=== PATIENT | male | born 1975 | race Two or more races ===

== ENCOUNTER 2021-02-07 22:13 | Emergency (ER) | payer BC, OTHER ==
[~2021-02-07] VITALS: Ht 177.8 cm; Wt 83.9 kg
[2021-02-07 23:47] VITALS: BP 114/74
== END 2021-02-08 00:34 | disposition home or self-care (01) ==
LOC: ER 22:13
DX: S00.83XA Contusion of other part of head, initial encounter (principal); E11.9 Type 2 diabetes mellitus without complications; V43.52XA Car driver injured in collision with other type car in traffic accident, initial encounter; Y93.89 Activity, other specified; Y92.488 Other paved roadways as the place of occurrence of the external cause; Y99.8 Other external cause status
CPT/HCPCS: 70450; 72125; 72128; 72131

== ENCOUNTER 2022-01-24 10:30 | Inpatient (IN) | payer BC ==
[~2022-01-24] VITALS: Ht 180.3 cm; Wt 66.4 kg
[2022-01-24] VITALS (10 sets, daily range): BP systolic 134–164; BP diastolic 78–97
[2022-01-24] MEDS ORDERED: INSULIN LANTUS (GLARGINE) 1 /0.01ml (100units/ml) SC ONE (12:00)
[2022-01-24] MEDS ORDERED: SODIUM CHLORIDE 0.9% 1,000 ML IV ONE (12:00)
[2022-01-24] MEDS ORDERED: InsuLIN R (HUMAN) 100 UNITS in SODIUM CHL 0.9% 99 ML IV SCH (12:00)
[2022-01-24] MEDS ORDERED: DEXTROSE (50%) 50ML SYRG IV PRN ×2 (12:00→14:45)
[2022-01-24] MEDS: ACCU-CHEK COMFORT CURVE STRIP VI SCH ×6 (12:42→23:42)
[2022-01-24 12:59] LABS: Basophils # (auto) 0 10 ^3/uL (0-0.2); Basophils % (auto) 0.2 % (0.0-2.0); Eosinophils # (auto) 0 10 ^3/uL (0-0.8); Eosinophils % (auto) 0.1 % (0.0-7.0); Lymphocytes # (auto) 0.9 10 ^3/uL (0.4-5.4); Lymphocytes % (auto) 4.7 % (10.0-50.0); Mean Corpuscular Hemoglobin 30.5 pg (28.0-32.0); Mean Corpuscular Volume 89.7 fL (80.0-100.0); Monocytes # (auto) 1.1 10 ^3/uL (0-1.3); Monocytes % (auto) 5.6 % (0.0-12.0); Neutrophils # (auto) 17.7 10 ^3/uL (1.6-8.6); Neutrophils % (auto) 89.4 % (37.0-80.0); White Blood Cell 19.8 10^3/uL (4.4-10.8)
[2022-01-24 13:11] LABS: Calcium 9.3 mg/dL (8.5-10.1); Potassium 3.8 mmol/L (3.5-5.1)
[2022-01-24 13:17] LABS: Albumin 2.4 g/dL (3.4-5.0); BUN/Creatinine Ratio 26.6; Bilirubin, Total 0.4 mg/dL (0.2-1.0); Magnesium 2.7 mg/dL (1.6-2.6)
[2022-01-24] MEDS ORDERED: NITROGLYCERIN 0.4 MG SL TAB SL PRN (14:45)
[2022-01-24] MEDS ORDERED: HYDROcodone-ACET 5/325MG TAB PO PRN (14:45)
[2022-01-24] MEDS ORDERED: ACETAMINOPHEN 325 MG TAB PO PRN (14:45)
[2022-01-24] MEDS ORDERED: MORPHINE SULFATE 4 MG/ML SYR/VIAL IV PRN (14:45)
[2022-01-24] MEDS: SODIUM CHLORIDE 0.9% 1,000 ML IV SCH ×2 (14:52→23:35)
[2022-01-24 16:57] LABS: BUN/Creatinine Ratio 27.1; Calcium 8.6 mg/dL (8.5-10.1); Potassium 3.2 mmol/L (3.5-5.1)
[2022-01-24] MEDS ORDERED: POTASSIUM CHL 20 Meq TABLET PO ONE (17:30)
[2022-01-24] MEDS: InsuLIN REG 1unit/0.01ml Soln (100units/ml) SC SCH ×2 (18:13→23:39)
[2022-01-24 21:48] LABS: BUN/Creatinine Ratio 22.4; Calcium 8.6 mg/dL (8.5-10.1); Potassium 3.6 mmol/L (3.5-5.1)
[2022-01-25] VITALS (12 sets, daily range): BP systolic 123–167; BP diastolic 74–92
[2022-01-25 04:21] LABS: Potassium 3.8 mmol/L (3.5-5.1)
[2022-01-25 04:26] LABS: Albumin 2.1 g/dL (3.4-5.0); BUN/Creatinine Ratio 23.6; Calcium 8.5 mg/dL (8.5-10.1)
[2022-01-25 04:28] LABS: Bilirubin, Total 0.3 mg/dL (0.2-1.0); Total Protein 6.5 g/dL (6.4-8.2)
[2022-01-25 04:34] LABS: Basophils # (auto) 0 10 ^3/uL (0-0.2); Basophils % (auto) 0.3 % (0.0-2.0); Eosinophils # (auto) 0 10 ^3/uL (0-0.8); Eosinophils % (auto) 0.3 % (0.0-7.0); Hematocrit 40.6 % (41.0-53.0); Hemoglobin 14.3 g/dL (13.5-17.5); Lymphocytes # (auto) 0.8 10 ^3/uL (0.4-5.4); Lymphocytes % (auto) 5.6 % (10.0-50.0); Mean Corpuscular Hemoglobin 30.9 pg (28.0-32.0); Mean Corpuscular Hgb Conc. 35.2 g/dL (32.0-36.0); Mean Corpuscular Volume 87.7 fL (80.0-100.0); Monocytes # (auto) 0.3 10 ^3/uL (0-1.3); Neutrophils # (auto) 12.9 10 ^3/uL (1.6-8.6); Neutrophils % (auto) 91.8 % (37.0-80.0); Nucleated Red Blood Cells % 0.1 %; Red Blood Cells 4.63 10^6/uL (4.5-5.90); Red Cell Distribution Width 12.1 % (11.8-14.3)
[2022-01-25] MEDS: InsuLIN REG 1unit/0.01ml Soln (100units/ml) SC SCH ×4 (06:13→23:48)
[2022-01-25] MEDS: ACCU-CHEK COMFORT CURVE STRIP VI SCH ×4 (06:15→23:40)
[2022-01-25] MEDS: IBUPROFEN 600 MG TAB PO PRN ×3 (06:54→21:55)
[2022-01-25] MEDS: SODIUM CHLORIDE 0.9% 1,000 ML IV SCH ×3 (07:54→19:50)
[2022-01-25 09:27] LABS: BUN/Creatinine Ratio 23.3; Calcium 8.2 mg/dL (8.5-10.1); Potassium 3.4 mmol/L (3.5-5.1)
[2022-01-25] MEDS ORDERED: INSULIN LANTUS (GLARGINE) 1 /0.01ml (100units/ml) SC SCH (10:00)
[2022-01-25] MEDS: INSULIN LANTUS (GLARGINE) 1 /0.01ml (100units/ml) SC SCH ×2 (11:41→21:50)
[2022-01-25] MEDS: ENOXAPARIN SOD 40 MG/0.4 ML SYRINGE SC SCH (11:42)
[2022-01-25] MEDS ORDERED: CEFTRIAXONE SODIUM 2 GM in D5W 5% 50 ML IV ONE (12:30)
[2022-01-25] MEDS ORDERED: POTASSIUM CHL 20 Meq TABLET PO ONE ×2 (12:45→18:00)
[2022-01-25 15:51] LABS: Calcium 7.9 mg/dL (8.5-10.1); Potassium 3.2 mmol/L (3.5-5.1)
[2022-01-25 15:53] LABS: BUN/Creatinine Ratio 28.6
[2022-01-25 17:37] LABS: Urine Bacteria NONE SEEN /hpf (None Seen); Urine Blood Negative /uL (Negative); Urine Budding Yeast OCCASIONAL /hpf (None Seen); Urine Mucus FEW (None Seen); Urine Specific Gravity 1.024 (1.001-1.035); Urine WBC 2 /hpf (0 - 3)
[2022-01-25 17:50] LABS: Alcohol, Urine < 3.0 mg/dL (0-10); Amphetamine Screen, Urine NEGATIVE (NEGATIVE); Barbiturate Scree,Urine NEGATIVE (NEGATIVE); Benzodiazephine Screen, Urine NEGATIVE (NEGATIVE); Cannabinoid Screen, Urine NEGATIVE (NEGATIVE); Cocaine Screen, Urine NEGATIVE (NEGATIVE); Opiate Scree,Urine NEGATIVE (NEGATIVE); Phencyclidine Screen, Urine NEGATIVE (NEGATIVE)
[2022-01-25] MEDS ORDERED: GLIP10TA9 PO (18:31)
[2022-01-25 21:56] LABS: BUN/Creatinine Ratio 32.6; Calcium 8.1 mg/dL (8.5-10.1); Potassium 3.7 mmol/L (3.5-5.1)
[2022-01-26] MEDS: SODIUM CHLORIDE 0.9% 1,000 ML IV SCH ×3 (04:02→18:49)
[2022-01-26 04:41] VITALS: BP 133/84
[2022-01-26] MEDS: ACCU-CHEK COMFORT CURVE STRIP VI SCH ×4 (05:26→23:54)
[2022-01-26] MEDS: InsuLIN REG 1unit/0.01ml Soln (100units/ml) SC SCH ×4 (05:27→23:55)
[2022-01-26 06:06] LABS: Albumin 1.6 g/dL (3.4-5.0); Calcium 7.3 mg/dL (8.5-10.1); Potassium 3.1 mmol/L (3.5-5.1)
[2022-01-26 06:07] LABS: Basophils # (auto) 0.1 10 ^3/uL (0-0.2); Basophils % (auto) 0.5 % (0.0-2.0); Eosinophils # (auto) 0.1 10 ^3/uL (0-0.8); Eosinophils % (auto) 0.9 % (0.0-7.0); Hematocrit 39.7 % (41.0-53.0); Hemoglobin 14.1 g/dL (13.5-17.5); Lymphocytes # (auto) 1.4 10 ^3/uL (0.4-5.4); Lymphocytes % (auto) 9.3 % (10.0-50.0); Mean Corpuscular Hemoglobin 30.9 pg (28.0-32.0); Mean Corpuscular Hgb Conc. 35.5 g/dL (32.0-36.0); Monocytes # (auto) 1.1 10 ^3/uL (0-1.3); Monocytes % (auto) 7.4 % (0.0-12.0); Neutrophils # (auto) 12.6 10 ^3/uL (1.6-8.6); Neutrophils % (auto) 81.9 % (37.0-80.0); Nucleated Red Blood Cells % 0.2 %; Red Blood Cells 4.56 10^6/uL (4.5-5.90); White Blood Cell 15.3 10^3/uL (4.4-10.8)
[2022-01-26 06:10] LABS: BUN/Creatinine Ratio 27.3; Bilirubin, Total 0.3 mg/dL (0.2-1.0); Total Protein 5.5 g/dL (6.4-8.2)
[2022-01-26] MEDS: IBUPROFEN 600 MG TAB PO PRN ×3 (08:18→23:41)
[2022-01-26 09:00] VITALS: BP 143/84
[2022-01-26] MEDS ORDERED: ZOLPIDEM TARTRATE 5 MG TAB PO PRN (09:45)
[2022-01-26] MEDS ORDERED: POTASSIUM CHL 20 Meq TABLET PO ONE (09:45)
[2022-01-26] MEDS: cefTRIAXone 1GM/50ML D5W 50 ML IV SCH (11:15)
[2022-01-26] MEDS: ENOXAPARIN SOD 40 MG/0.4 ML SYRINGE SC SCH (11:15)
[2022-01-26] MEDS: INSULIN LANTUS (GLARGINE) 1 /0.01ml (100units/ml) SC SCH ×2 (12:02→21:27)
[2022-01-26 13:00] VITALS: BP 139/83
[2022-01-26 17:00] VITALS: BP 139/76
[2022-01-26] MEDS: POTASSIUM CHL 20 Meq TABLET PO SCH ×2 (17:29→21:26)
[2022-01-26 22:00] VITALS: BP 133/86
[2022-01-26] MEDS ORDERED: VANCOMYCIN PER PHARMACY 0 MG IV SCH (22:45)
[2022-01-26] MEDS ORDERED: VANCOMYCIN 1GM/250ML 250 ML IV ONE (23:00)
[2022-01-27 04:18] LABS: Basophils # (auto) 0 10 ^3/uL (0-0.2); Basophils % (auto) 0.2 % (0.0-2.0); Eosinophils # (auto) 0.1 10 ^3/uL (0-0.8); Eosinophils % (auto) 0.5 % (0.0-7.0); Hematocrit 41.1 % (41.0-53.0); Hemoglobin 13.9 g/dL (13.5-17.5); Lymphocytes # (auto) 1.8 10 ^3/uL (0.4-5.4); Lymphocytes % (auto) 11.9 % (10.0-50.0); Mean Corpuscular Hemoglobin 29.8 pg (28.0-32.0); Mean Corpuscular Hgb Conc. 33.9 g/dL (32.0-36.0); Mean Corpuscular Volume 87.9 fL (80.0-100.0); Monocytes # (auto) 1.3 10 ^3/uL (0-1.3); Monocytes % (auto) 8.5 % (0.0-12.0); Neutrophils # (auto) 11.7 10 ^3/uL (1.6-8.6); Neutrophils % (auto) 78.9 % (37.0-80.0); Nucleated Red Blood Cells % 0.1 %; Red Blood Cells 4.67 10^6/uL (4.5-5.90); White Blood Cell 14.8 10^3/uL (4.4-10.8)
[2022-01-27 04:31] LABS: Albumin 1.9 g/dL (3.4-5.0); Calcium 8.6 mg/dL (8.5-10.1); Potassium 3.9 mmol/L (3.5-5.1)
[2022-01-27 04:35] LABS: BUN/Creatinine Ratio 13.7; Bilirubin, Total 0.4 mg/dL (0.2-1.0); Total Protein 6.6 g/dL (6.4-8.2)
[2022-01-27 05:00] VITALS: BP 124/78
[2022-01-27] MEDS: InsuLIN REG 1unit/0.01ml Soln (100units/ml) SC SCH ×2 (06:00→12:51)
[2022-01-27] MEDS: ACCU-CHEK COMFORT CURVE STRIP VI SCH ×2 (06:21→12:00)
[2022-01-27] MEDS: IBUPROFEN 600 MG TAB PO PRN ×2 (06:50→15:36)
[2022-01-27 09:00] VITALS: BP 127/81
[2022-01-27] MEDS: cefTRIAXone 1GM/50ML D5W 50 ML IV SCH (09:00)
[2022-01-27] MEDS: POTASSIUM CHL 20 Meq TABLET PO SCH (09:41)
[2022-01-27] MEDS: ENOXAPARIN SOD 40 MG/0.4 ML SYRINGE SC SCH (09:42)
[2022-01-27] MEDS: INSULIN LANTUS (GLARGINE) 1 /0.01ml (100units/ml) SC SCH (09:42)
[2022-01-27] MEDS ORDERED: VANCOMYCIN 1GM/250ML 250 ML IV SCH (10:00)
[2022-01-27] MEDS ORDERED: SITA50TA28 PO (11:24)
[2022-01-27 12:50] LABS: Cholesterol 105 mg/dL (< 200); HDL Cholesterol 25 mg/dL (40-59); LDL Cholesterol 70 mg/dL (< 100); Triglycerides 92 mg/dL (< 150)
[2022-01-27 13:00] VITALS: BP 142/73
[2022-01-27] MEDS: SODIUM CHLORIDE 0.9% 1,000 ML IV SCH (13:00)
[2022-01-27 14:00] VITALS: BP 124/81
[2022-01-27] MEDS ORDERED: IBU600T PO (14:43)
[2022-01-27 16:43] VITALS: BP 136/82
== END 2022-01-27 15:30 | disposition home or self-care (01) | DRG 871 ==
LOC: ER 10:30 → TELE 14:33 → ICU WEST 16:25 → TELE-CENTR 01-25 09:18
PROVIDERS: ADMIT Internal Medicine; ATTEND Family Medicine
DX: A41.9 Sepsis, unspecified organism (principal); E11.10 Type 2 diabetes mellitus with ketoacidosis without coma; E87.1 Hypo-osmolality and hyponatremia; E86.0 Dehydration; M79.621 Pain in right upper arm; Z20.822 Contact with and (suspected) exposure to COVID-19; E86.1 Hypovolemia; Z91.14 Patient's other noncompliance with medication regimen; Z87.891 Personal history of nicotine dependence; Z91.19 Patient's noncompliance with other medical treatment and regimen; Z83.3 Family history of diabetes mellitus
CPT/HCPCS: 36415; 36600; 71046; 73060; 80048; 80053; 80061; 80307; 81001; 82010; 82043; 82306; 82607; 82805; 82962; 83036; 83605; 83735; 84154; 84443; 85025; 87040; 87077; 87081; 87086; 87088; 87147; 87186; 93005; 93971; 96365; 96372; G0378; J0696; J1815; J7060

== ENCOUNTER → 2022-04-14 | Outpatient (CLI) | payer BC ==
[~2022-04-14] MED LIST: GLIP10TA9 PO; IBU600T PO; SITA50TA28 PO
[2022-04-14 15:32] LABS: Albumin 4.3 g/dL (3.4-5.0); Potassium 4.3 mmol/L (3.5-5.1)
[2022-04-14 15:36] LABS: BUN/Creatinine Ratio 19.2; Bilirubin, Total 0.6 mg/dL (0.2-1.0); Total Protein 7.7 g/dL (6.4-8.2)
== END | disposition home or self-care (01) ==
LOC: LAB 14:48
PROVIDERS: ATTEND Internal Medicine
DX: E11.9 Type 2 diabetes mellitus without complications (principal)
CPT/HCPCS: 36415; 80053; 83036

== ENCOUNTER 2025-03-08 16:34 | Inpatient (IN) | payer BC ==
[~2025-03-08] VITALS: Ht 180.3 cm; Wt 70.8 kg
--- NOTE | 2025-03-08 17:19 | ED.PDOC ---
History of present illness HPI Comments 49 y/o M, with PMHx of DM presents to the ED for CC of weakness. Patient states, that he has been experiencing generalized weakness with associated symptoms of poor appetite, frequent urination, and dry mouth xdays. Patient reports, that he was diagnosed with diabetes [id number] ago and has been non-compliant with medications. Patient denies chills, body-aches, or diaphoresis. No others symptoms or modifying factors present at this time. Chief Complaint: Hyperglycemia Time Seen by MD: 17:12 Primary Care Provider: MITCH History of present illness: Nurses Notes, Medications, Allergies Allergies: Coded Allergies: NO KNOWN ALLERGIES (Unverified , 02/07/21) Home Meds Active Scripts Ibuprofen Micronized (MOTRIN TABLET) 600 Mg Tb, 600 MG PO TID PRN for 20 Days, #60 TAB *Black box warning-NSAIDS can increase risk of OR & hypertension, GI irritation, ulceration, bleed, perferation. Prov:MARIA LUISA ZAFAR MD 01/27/22 Sitagliptin-Metformin Hcl (JANUMET XR) 1 Tab Tab, 1 TAB PO BID, #180 TAB Prov:MARIA LUISA ZAFAR MD 01/27/22 Reported Medications Glipizide (Glipizide) 10 Mg Tab, 10 MG PO DAILY, TAB 01/25/22 Information Source: Patient Mode of Arrival: Ambulatory Timing: Months Duration: Since onset Prehospital treatment: None [place]: None Symptoms: Eating poorly History of: None Associated signs and symptoms: None Past Medical History PAST MEDICAL HISTORY: DM Surgical History: Denies all surgeries Family History Family History: Family hx of DM Social History Smoker: Quit Less Than 1 Year Alcohol: Occasionally Drugs: Denies Drug Use Lives In: Home Constitutional: reports: weakness; denies: chills, diaphoresis, fatigue, fever, malaise, sweats, others EENTM: denies: blurred vision, double vision, ear bleeding, ear discharge, ear drainage, ear pain, ear ringing, eye pain, eye redness, hearing loss, mouth pain, mouth swelling, nasal discharge, nose bleeding, nose congestion, nose pain, photophobia, tearing, throat pain, throat swelling, voice changes, others Respiratory: denies: cough, hemoptysis, orthopnea, SOB at rest, shortness of breath, SOB with excertion, stridor, wheezing, others Cardiovascular: denies: chest pain, dizzy spells, diaphoresis, Dyspnea on exertion, edema, irregular heart beat, left arm pain, lightheadedness, palpitations, PND, syncope, others Gastrointestinal: denies: abdomen distended, abdominal pain, blood streaked bowels, constipated, diarrhea, dysphagia, difficulty swallowing, hematemesis, melena, nausea, poor appetite, poor fluid intake, rectal bleeding, rectal pain, vomiting, others Genitourinary: denies: burning, dysuria, flank pain, frequency, hematuria, incontinence, penile discharge, penile sore, pain, testicle pain, testicle swelling, urgency, others Neurological: denies: dizziness, fainting, headache, left sided numbness, left sided weakness, numbness, paresthesia, pre-existing deficit, right sided numbness, right sided weakness, seizure, speech problems, tingling, tremors, weakness, others Musculoskeletal: denies: back pain, gout, joint pain, joint swelling, muscle pain, muscle stiffness, neck pain, others Integumetry: denies: bruises, change in color, change in hair/nails, dryness, laceration, lesions, lumps, rash, wounds, others Allergic/Immunocompromised: denies: Difficulty Healing, Frequent Infections, Hives, Itching, others Hematologic/Lymphatic: denies: anemia, blood clots, easy bleeding, easy bruising, swollen glands, others Endocrine: reports: excessive thirst, excessive urination, others (dry mouth) Psychiatric: denies: anxiety, bipolar disorder, depression, hopeless, panic disorder, schizophrenia, sleepless, suicidal, others All Other Systems: Reviewed and Negative Physical Exam General Appearance: Moderate Distress HEENT: Pale Conjuntivae (L), Pale Conjuntivae (R), Pharynx Normal, TMs Normal Neck: Full Range of Motion, Non-Tender, Normal, Normal Inspection Respiratory: Chest Non-Tender, Lungs Clear, No Accessory Muscle Use, No Respiratory Distress, Normal Breath Sounds Cardiovascular: No Edema, No JVD, No Murmur, No Gallop, Normal Peripheral Pulses, Regular Rate/Rhythm Breast Exam: Deferred Gastrointestinal: No Organomegaly, Non Tender, No Pulsatile Mass, Normal Bowel Sounds, Soft Genitalia: Deferred Pelvic: Deferred Rectal: Deferred Extremities: No calf tenderness, Normal capillary refill, Normal inspection, Normal range of motion, Non-tender, No pedal edema Musculoskeletal : Apperance: Normal Neurologic: Alert, aviation electronics technician II-XII nml as Tested, Motor Weakness, Normal Affect, Normal Mood, No Sensory Deficits Cerebellar Function: Normal Reflexes: Normal Skin: Dry, Normal Color, Warm Lymphatic: No Adenopathy Was a procedure done? Was a procedure done?: No Differential Diagnosis (DM) Differential Diagnosis: Hyperglycemia X-Ray, Labs, Meds, VS Vital Signs Date Time Temp Pulse Resp B/P (MAP) Pulse Ox O2 Delivery O2 Flow Rate FiO2 03/08/25 20:31 98.7 105 16 132/90 (104) 98 98.7 03/08/25 17:10 97.1 118 17 127/86 (100) 96 97.1 Lab Test 03/08/25 17:27 03/08/25 17:08 03/08/25 17:07 Range/Units White Blood Count 12.2 H 4.4-10.8 10^3/uL Red Blood Count 4.90 4.5-5.90 10^6/uL Hemoglobin 14.0 13.5-17.5 g/dL Hematocrit 41.5 41.0-53.0 % Mean Corpuscular Volume 84.7 80.0-100.0 fL Mean Corpuscular Hemoglobin 28.6 28.0-32.0 pg Mean Corpuscular Hemoglobin Concent 33.8 32.0-36.0 g/dL Red Cell Distribution Width 11.8 11.8-14.3 % Platelet Count 492 H 140-450 10^3/uL Mean Platelet Volume 7.6 6.9-10.8 fL Neutrophils (%) (Auto) 83.6 H 37.0-80.0 % Lymphocytes (%) (Auto) 9.9 L 10.0-50.0 % Monocytes (%) (Auto) 5.8 0.0-12.0 % Eosinophils (%) (Auto) 0.4 0.0-7.0 % Basophils (%) (Auto) 0.3 0.0-2.0 % Neutrophils # (Auto) 10.2 H 1.6-8.6 10 ^3/uL Lymphocytes # (Auto) 1.2 0.4-5.4 10 ^3/uL Monocytes # (Auto) 0.7 0-1.3 10 ^3/uL Eosinophils # (Auto) 0 0-0.8 10 ^3/uL Basophils # (Auto) 0 0-0.2 10 ^3/uL Nucleated Red Blood Cells 0.0 % Sodium Level 134 L 136-145 mmol/L Potassium Level 4.8 3.5-5.1 mmol/L Chloride Level 95 L 98-107 mmol/L Carbon Dioxide Level 23 20-31 mmol/L Anion Gap 16 H 5-15 Blood Urea Nitrogen 18 9-23 mg/dL Creatinine 0.96 0.700-1.30 mg/dL Glomerular Filtration Rate Calc 98 >90 mL/min BUN/Creatinine Ratio 18.8 10.0-20.0 Serum Glucose 494 *H 74-106 mg/dL Calcium Level 9.7 8.7-10.4 mg/dL Beta-Hydroxybutyric Acid 4.292 H < 0.4 mmol/L POC Glucose 448 *H 440 *H 70-106 mg/dl The patient's CBC shows an elevated white blood cell count of 12.2 The rest of the CBC is within normal limits The chemistry panel shows hypochloremia The glucose is elevated at 494 The beta hydroxybutyric acid is also elevated The patient is being bolused with a 1 L bolus of normal saline The patient was given insulin IV push for the hyperglycemia The patient is being admitted Time of 1ST Reevaluation: 17:42 Reevaluation 1ST: Unchanged Patient Education/Counseling: Diagnosis, Treatment, Prognosis Family Education/Counseling: No Family Present Departure 1 Departure Time of Disposition: 20:41 Impression: Primary Impression: Uncontrolled diabetes mellitus Qualified Codes: E13.65 - Other specified diabetes mellitus with hyperglycemia Disposition: 09 ADMITTED INPATIENT Admit to: Med Surg Condition: Fair Critical Care Note Critical Care Time?: No Stability Stability form required: No Heart Score Heart Score: Heart Score Response (Comments) Value History N/A 0 EKG N/A 0 Age N/A 0 Risk Factors N/A 0 Troponin N/A 0 Total 0 I personally scribed for KIRK STOVER MD ([email or web address]) on 03/08/25 at 17:19. Electronically submitted by Pau Austin ([email or web address]). KIRK STOVER MD March 08, 2025 17:19
[2025-03-08 17:49] LABS: Potassium 4.8 mmol/L (3.5-5.1)
[2025-03-08 17:50] LABS: Anion Gap 16 (5-15); Calcium 9.7 mg/dL (8.7-10.4); Carbon Dioxide 23 mmol/L (20-31)
[2025-03-08 17:55] LABS: BUN/Creatinine Ratio 18.8 (10.0-20.0); Blood Urea Nitrogen 18 mg/dL (9-23)
[2025-03-08 18:12] LABS: Basophils # (auto) 0 10 ^3/uL (0-0.2); Eosinophils # (auto) 0 10 ^3/uL (0-0.8); Eosinophils % (auto) 0.4 % (0.0-7.0); Mean Corpuscular Volume 84.7 fL (80.0-100.0); Monocytes # (auto) 0.7 10 ^3/uL (0-1.3); Monocytes % (auto) 5.8 % (0.0-12.0)
[2025-03-08 18:13] LABS: Basophils % (auto) 0.3 % (0.0-2.0); Chloride 95 mmol/L (98-107); Hematocrit 41.5 % (41.0-53.0); Lymphocytes # (auto) 1.2 10 ^3/uL (0.4-5.4); Lymphocytes % (auto) 9.9 % (10.0-50.0); Mean Corpuscular Hemoglobin 28.6 pg (28.0-32.0); Mean Corpuscular Hgb Conc. 33.8 g/dL (32.0-36.0); Neutrophils # (auto) 10.2 10 ^3/uL (1.6-8.6); Neutrophils % (auto) 83.6 % (37.0-80.0); Platelet Count (auto) 492 10^3/uL (140-450); Red Cell Distribution Width 11.8 % (11.8-14.3); Sodium 134 mmol/L (136-145); White Blood Cell 12.2 10^3/uL (4.4-10.8)
[2025-03-08 18:14] LABS: Glucose 494 mg/dL (74-106)
[2025-03-08] MEDS ORDERED: MORPHINE SULFATE INJ 2 MG/ml SYRG IV PRN (21:00)
[2025-03-08] MEDS ORDERED: DEXTROSE (50%) 50ML SYRG IV PRN (21:00)
[2025-03-08] MEDS ORDERED: ACETAMINOPHEN 325 MG TAB PO PRN (21:00)
[2025-03-08] MEDS ORDERED: NITROGLYCERIN 0.4 MG SL TAB SL PRN (21:00)
[2025-03-08] MEDS ORDERED: ONDANSETRON HCL 4 MG/2 ML VIAL IV PRN (21:00)
[2025-03-08] MEDS ORDERED: SODIUM CHLORIDE 0.9% 1,000 ML IV SCH (21:00)
--- NOTE | 2025-03-08 21:10 | DVHHP2 ---
History of Present Illness History of Present Illness Patient is 49 years old male with past medical history of diabetes mellitus type 2, noncompliant came with a complaint of fatigue. As per patient he has been feeling tired and fatigued and weak 4 weeks. Patient also endorsed poor appetite and increased frequency of micturition lately and dry mouth. Patient denied any fever, abdominal pain, dysuria, acute joint pain or swelling, sick contact, chest pain no shortness a breath, dysarthria or change in vision. Patient reported that he does not see any doctor and did not take any medication for diabetes for over 1 year. Initial lab workup revealed leukocytosis with WBC 12.2, neutrophil 83.6, platelets 492, sodium 134, anion gap 16, serum glucose 494, beta hydroxybutyrate 4.2. UDS negative, serum alcohol 7.5. Urinalysis revealed ketones 2+, leukocyte esterase 1+, WBC 53, glucose 4+. ABG revealed pH 7.41, pCO2 23.4, bicarbonate 14.8, P O2 84.7. Past Medical History Diabetes mellitus type 2 for last 3 years Past Surgical History Patient denied having any surgery Family History Mom had diabetes mellitus Past Social History Lives with mom, smoker, 1 pack per year for 20 years, drinks beer 2-3 beer per day, denied doing drugs Home meds-patient reported he is to take insulin and glipizide but not taking for over year, not seeing any PCP Review of Systems Review of Systems Allergy- Tylenol, hydrocodone Patient was seen today at the bedside. Cardiovascular- deny acute chest pain or shortness of breath or cough or palpitation Respiratory denies cough or short of breath or wheezing Gastrointestinal- denies any rectal bleeding, nausea or vomiting Musculoskeletal-denies acute joint swelling or tenderness or redness Neurological- denies acute dysarthria, dysphagia, change in vision Psychiatry- denies depression or SI or HI Skin- denies acute rash or purpura Allergies: Coded Allergies: Acetaminophen (Verified Allergy, Intermediate, 03/08/25) Hydrocodone (Verified Allergy, Intermediate, 03/08/25) Medications Current Medications Medications Dose Ordered Sig/Alyssa Route Start Time Stop Time Status Last Admin Dose Admin Sodium Chloride 10 ml Q8HR IV 03/08/25 22:00 Ondansetron HCl 4 mg Q4HP PRN IV 03/08/25 21:00 Enoxaparin Sodium 40 mg DAILY SC 03/09/25 10:00 Acetaminophen 650 mg Q6HP PRN PO 03/08/25 21:00 Nitroglycerin 0.4 mg Q5MINP PRN SL 03/08/25 21:00 Morphine Sulfate 2 mg Q30M PRN IV 03/08/25 21:00 Sodium Chloride 1,000 ml @ 500 mls/hr Q2H IV 03/08/25 21:00 03/09/25 00:59 UNV Sodium Chloride 1,000 ml @ 250 mls/hr Q4H IV 03/09/25 01:00 03/09/25 02:59 UNV Sodium Chloride 1,000 ml @ 150 mls/hr Q6H40M IV 03/09/25 03:00 UNV Insulin Human (Reg)/Sodium Chloride 100 ml @ 0.5 mls/hr Q24H IV 03/08/25 21:00 UNV Dextrose 50 ml UD PRN IV 03/08/25 21:00 UNV Pantoprazole Sodium 40 mg DAILY IV 03/09/25 10:00 UNV Exam Vital Signs Vital Signs Date Time Temp Pulse Resp B/P (MAP) Pulse Ox O2 Delivery O2 Flow Rate FiO2 03/08/25 20:31 98.7 105 16 132/90 (104) 98 98.7 Exam General examination- awake, alert, oriented, conversant HEENT- PEERLA, no acute nasal discharge Cardiovascular- S1-S2 audible, rate and rhythm regular, no murmur Respiratory- CTAB, no wheeze or rhonchi Gastrointestinal-nontender, bowel sound+. Nondistended Musculoskeletal-no acute joint swelling or tenderness or redness Lower extremity- no leg edema Neurological- cranial nerves intact, no acute dysarthria or dysphagia Psychiatry- denies depression or SI or HI Skin- no acute rash or purpura Labs/Xrays Labs Test 03/08/25 17:27 03/08/25 17:08 Range/Units White Blood Count 12.2 H 4.4-10.8 10^3/uL Red Blood Count 4.90 4.5-5.90 10^6/uL Hemoglobin 14.0 13.5-17.5 g/dL Hematocrit 41.5 41.0-53.0 % Mean Corpuscular Volume 84.7 80.0-100.0 fL Mean Corpuscular Hemoglobin 28.6 28.0-32.0 pg Mean Corpuscular Hemoglobin Concent 33.8 32.0-36.0 g/dL Red Cell Distribution Width 11.8 11.8-14.3 % Platelet Count 492 H 140-450 10^3/uL Mean Platelet Volume 7.6 6.9-10.8 fL Neutrophils (%) (Auto) 83.6 H 37.0-80.0 % Lymphocytes (%) (Auto) 9.9 L 10.0-50.0 % Monocytes (%) (Auto) 5.8 0.0-12.0 % Eosinophils (%) (Auto) 0.4 0.0-7.0 % Basophils (%) (Auto) 0.3 0.0-2.0 % Neutrophils # (Auto) 10.2 H 1.6-8.6 10 ^3/uL Lymphocytes # (Auto) 1.2 0.4-5.4 10 ^3/uL Monocytes # (Auto) 0.7 0-1.3 10 ^3/uL Eosinophils # (Auto) 0 0-0.8 10 ^3/uL Basophils # (Auto) 0 0-0.2 10 ^3/uL Nucleated Red Blood Cells 0.0 % Sodium Level 134 L 136-145 mmol/L Potassium Level 4.8 3.5-5.1 mmol/L Chloride Level 95 L 98-107 mmol/L Carbon Dioxide Level 23 20-31 mmol/L Anion Gap 16 H 5-15 Blood Urea Nitrogen 18 9-23 mg/dL Creatinine 0.96 0.700-1.30 mg/dL Glomerular Filtration Rate Calc 98 >90 mL/min BUN/Creatinine Ratio 18.8 10.0-20.0 Serum Glucose 494 *H 74-106 mg/dL Calcium Level 9.7 8.7-10.4 mg/dL Beta-Hydroxybutyric Acid 4.292 H < 0.4 mmol/L POC Glucose 448 *H 70-106 mg/dl Assessment/Plan Assessment/Plan Assessment and plan Weakness and fatigue and increased frequency of micturition likely due to DKA DKA Suspected Sepsis Anion gap metabolic acidosis with Respiratory alkalosis UTI Poor appetite and fatigue Mild hyponatremia likely dilutional from hyperglycemia Alcohol abuse Smoker Leukocytosis with WBC 12.2, neutrophil 83.6, platelets 492, sodium 134, anion gap 16, serum glucose 494, beta hydroxybutyrate 4.2. UDS negative, serum alcohol 7.5. Urinalysis revealed ketones 2+, leukocyte esterase 1+, WBC 53, glucose 4+. ABG revealed pH 7.41, pCO2 23.4, bicarbonate 14.8, P O2 84.7. Plan Insulin sliding scale as prescribed Insulin Lantus as prescribed IV normal saline as prescribed Ceftriaxone 1 g IV daily as prescribed Pantoprazole as prescribed Lovenox for DVT prophylaxis Thiamine as prescribed Folic acid as prescribed Patient was counseled about the effect of alcoholism and smoking on health Pending urine culture and blood culture Pending CXR Goals of care, Code status ; discussed with >15 minutes PUD prophylaxis: Pantoprazole DVT prophylaxis: Lovenox Plan discussed with Dr. Barkley , nursing staff, Total time spent on patient evaluation, chart review, assessment and plan, discussion discussion >35 minutes Plan discussed with: Patient, Other My Orders Orders - ENZO LOW RESIDENT Procedure Category Date Status Time Admit ADMIT 03/08/25 Transmitted 20:51 Code Status CODE 03/08/25 Transmitted 20:51 Sodium Chloride Lock PHA 03/08/25 In Process (Saline Lock Ns) 22:00 Ondansetron Hcl PHA 03/08/25 In Process (Zofran) 21:00 Enoxaparin Sodium PHA 03/09/25 In Process (Lovenox) 10:00 Complete Blood Count LAB 03/09/25 Verified 04:00 Comprehensive LAB 03/09/25 Verified Metabolic Panel 04:00 Acetaminophen Tablet PHA 03/08/25 In Process (Tylenol Tablet) 21:00 Nitroglycerin PHA 03/08/25 In Process Sublingual (Ntrostat 21:00 Morphine Sulfate PHA 03/08/25 In Process Injection 21:00 Oxygen By Nasal RT 03/08/25 Transmitted Cannula 20:51 Stat Ekg For Chest DESIREE 03/08/25 In Process Pain 20:51 Notify Of Changes DESIREE 03/08/25 In Process From Base 20:51 Fibre Composite Technician For DESIREE 03/08/25 In Process 24 Hours 20:51 Emergency Dysrhythmia DESIREE 03/08/25 In Process Protocol 20:51 Rhythm Strips Once DESIREE 03/08/25 In Process Every Shift 20:51 * Commercial Journeyman Electrician CONS 03/08/25 Transmitted Consult Abg W/ Co-Ox RT 03/08/25 Logged 21:01 Ceftriaxone 1gm/50ml PHA 03/08/25 Logged D5w (Rocephin) 21:15 Ceftriaxone 2gm/50ml PHA 03/08/25 Logged D5w (Rocephin 2gm/5 21:15 Blood Culture ROCHELLE 03/08/25 Logged 21:01 Urine Bacterial ROCHELLE 03/08/25 Logged Culture 21:01 Pantoprazole PHA 03/08/25 Logged (Protonix) 21:15 Pantoprazole PHA 03/09/25 Logged (Protonix) 10:00 Comprehensive LAB 03/08/25 Logged Metabolic Panel 23:00 Drug Screen LAB 03/08/25 Logged 21:05 Blood Alcohol LAB 03/08/25 Logged 21:05 Chest Xray 1 View XY 03/08/25 Logged 21:07 Date of Service: March 08, 2025 Billing Provider: DOUG BARKLEY MD Common Visit Codes: [id number] INP/OBS CARE (HIGH) Secondary Visit Codes: [id number] CARE PLAN 30 MINUTES ENZO LOW RESIDENT March 08, 2025 21:10
[2025-03-08 21:19] LABS: Base Excess -7.7 mmol/L (-2.0-3.0)
[2025-03-08 21:45] LABS: Phosphorus 4.7 mg/dL (2.4-5.1)
[2025-03-08] MEDS: cefTRIAXone 1GM/50ML D5W 50 ML IV ONE (22:18)
[2025-03-08] MEDS: SODIUM CHLOR 0.9% PF (SALINE LOCK) 10ML VIAL/SYR IV SCH (22:18)
[2025-03-08] MEDS: cefTRIAXone 2GM/50ML D5W 50 ML IV ONE (22:28)
[2025-03-08] MEDS: PANTOPRAZOLE 40 MG/10 ML VIAL INJ IV ONE (22:28)
[2025-03-08] MEDS: InsuLIN REG 1unit/0.01ml Soln (100units/ml) IV ONE (22:29)
[2025-03-08] MEDS: SODIUM CHLORIDE 0.9% 1,000 ML IV SCH (22:30)
[2025-03-08] MEDS: SODIUM CHLORIDE 0.9% 1,000 ML IV ONE (22:30)
[2025-03-08] MEDS: ACCU-CHEK COMFORT CURVE STRIP VI SCH (22:40)
[2025-03-08 22:45] LABS: Urine Bacteria None Seen /hpf (None Seen)
[2025-03-08 22:57] VITALS: PULSE 116; RESP 18; O2SAT 96
[2025-03-08 22:59] LABS: Urine Blood 1+ /uL (Negative); Urine Clarity Clear (Clear); Urine Color Light-Yellow (Yellow); Urine Protein, UAD Negative (Negative); Urine Specific Gravity 1.027 (1.001-1.035); Urine Squamous Epithelial Cell FEW /hpf (<5); Urine Urobilinogen Normal (Negative); Urine WBC 53 /HPF (0-3)
[2025-03-08 23:15] LABS: Albumin 4.5 g/dL (3.2-4.8); Anion Gap 17 (5-15); BUN/Creatinine Ratio 18.4 (10.0-20.0); Blood Urea Nitrogen 19 mg/dL (9-23); Carbon Dioxide 21 mmol/L (20-31); Total Protein 7.8 g/dL (5.7-8.2)
[2025-03-08 23:16] LABS: Bilirubin, Total 0.3 mg/dL (0.2-1.0)
[2025-03-08 23:22] LABS: Alanine Aminotransferase < 9 U/L (7-40); Alkaline Phosphatase 133 U/L (46-116); Aspartate Aminotransferase < 8 U/L (13-40); Chloride 95 mmol/L (98-107); Sodium 133 mmol/L (136-145)
[2025-03-08 23:24] LABS: Glucose 438 mg/dL (74-106)
[2025-03-08 23:28] LABS: Amphetamine Screen, Urine Neg (NEGATIVE); Barbiturate Scree,Urine Neg (NEGATIVE); Opiate Scree,Urine Neg (NEGATIVE); Phencyclidine Screen, Urine Neg (NEGATIVE)
[2025-03-08 23:29] LABS: Benzodiazephine Screen, Urine Neg (NEGATIVE); Cannabinoid Screen, Urine Neg (NEGATIVE); Cocaine Screen, Urine Neg (NEGATIVE)
[2025-03-08 23:34] VITALS: RESP 16; O2SAT 97
[2025-03-08] MEDS: FOLIC ACID 1 MG in D5W 5% 50 ML INJ ONE (23:45)
[2025-03-09] MEDS ORDERED: SOD CHL 0.9%/ KCL 20MEQ 1,000 ML IV SCH (00:45)
[2025-03-09 00:53] LABS: Rapid Influenza A Negative (Negative); Rapid Influenza B Negative (Negative)
[2025-03-09 00:54] LABS: COVID19 ANTIGEN SOFIA FIA NEGATIVE (NEGATIVE)
[2025-03-09] MEDS: THIAMINE 100mg/ml INJ (200mg/2ml VIAL) IV ONE (01:07)
[2025-03-09] MEDS: INSULIN DRIP 100 UNIT/100ML 100 ML IV SCH (01:37)
[2025-03-09] MEDS: SODIUM CHLORIDE 0.9% 1,000 ML IV SCH (01:56)
[2025-03-09] MEDS ORDERED: SODIUM CHLORIDE 0.9% 1,000 ML IV SCH (03:00)
[2025-03-09] MEDS: SOD CHL 0.9%/ KCL 20MEQ 1,000 ML IV SCH (03:23)
[2025-03-09] MEDS: INSULIN LISPRO (HUMAN) 100 UNITS/ML ML SC ONE (05:10)
[2025-03-09] MEDS: INSULIN LANTUS (GLARGINE) 1 /0.01ml (100units/ml) SC ONE ×2 (05:11→16:15)
--- NOTE | 2025-03-09 05:59 | DVH ---
EXAM: XR Chest, 1 View CLINICAL INDICATION: rule out PNA/Pulmonary edema TECHNIQUE: Frontal view of the chest. COMPARISON: [facility] on DOS: 01/24/22 FINDINGS: LUNGS AND PLEURAL SPACES: Unremarkable. No consolidation. No pneumothorax. HEART: Unremarkable. No cardiomegaly. MEDIASTINUM: Unremarkable. Normal mediastinal contour. BONES/JOINTS: Unremarkable. No acute fracture. OTHER FINDINGS: . IMPRESSION: No acute cardiopulmonary process.
[2025-03-09] MEDS: ACCU-CHEK COMFORT CURVE STRIP VI SCH ×3 (06:00→16:00)
[2025-03-09 06:22] LABS: Basophils # (auto) 0.1 10 ^3/uL (0-0.2); Basophils % (auto) 0.5 % (0.0-2.0); Eosinophils # (auto) 0.1 10 ^3/uL (0-0.8); Eosinophils % (auto) 0.8 % (0.0-7.0); Hematocrit 36.2 % (41.0-53.0); Hemoglobin 12.5 g/dL (13.5-17.5); Lymphocytes # (auto) 1.7 10 ^3/uL (0.4-5.4); Lymphocytes % (auto) 12.3 % (10.0-50.0); Mean Corpuscular Hgb Conc. 34.5 g/dL (32.0-36.0); Mean Corpuscular Volume 84.1 fL (80.0-100.0); Monocytes % (auto) 7.3 % (0.0-12.0); Neutrophils # (auto) 10.8 10 ^3/uL (1.6-8.6); Neutrophils % (auto) 79.1 % (37.0-80.0); Platelet Count (auto) 449 10^3/uL (140-450); Red Blood Cells 4.31 10^6/uL (4.5-5.90); Red Cell Distribution Width 11.7 % (11.8-14.3); White Blood Cell 13.7 10^3/uL (4.4-10.8)
[2025-03-09 06:39] LABS: Alkaline Phosphatase 115 U/L (46-116); Anion Gap 13 (5-15); BUN/Creatinine Ratio 19.6 (10.0-20.0); Blood Urea Nitrogen 11 mg/dL (9-23); Carbon Dioxide 21 mmol/L (20-31); Chloride 104 mmol/L (98-107); Magnesium 1.9 mg/dL (1.6-2.6); Sodium 138 mmol/L (136-145); Total Protein 6.9 g/dL (5.7-8.2)
[2025-03-09 06:40] LABS: Albumin 3.9 g/dL (3.2-4.8)
[2025-03-09 06:41] LABS: Alanine Aminotransferase < 9 U/L (7-40); Aspartate Aminotransferase < 8 U/L (13-40); Bilirubin, Total 0.3 mg/dL (0.2-1.0); Calcium 8.4 mg/dL (8.7-10.4); Glucose 166 mg/dL (74-106); Phosphorus 2.1 mg/dL (2.4-5.1); Potassium 3.3 mmol/L (3.5-5.1)
[2025-03-09] MEDS: INSULIN LISPRO (HUMAN) 100 UNITS/ML ML SC SCH (07:00)
[2025-03-09] MEDS: POTASSIUM CHL 20MEQ/100ML 100 ML IV ONE (07:49)
[2025-03-09 08:00] VITALS: PULSE 91; RESP 11; O2SAT 95
[2025-03-09] MEDS: D5W/SOD CHLO 0.9% 1,000 ML IV SCH (08:47)
--- NOTE | 2025-03-09 09:27 | DVHPNRES ---
Progress Note Date Seen: March 09, 2025 Resident Creating Document: CORA CHAVEZ RESIDENT Has the PT tested + for MRSA If YES, has PT been informed?: No Medical Necessity Reason Pt with a Central, PICC or Fol: No Subjective Review of Systems Doc Ace is a 49 years old male with a PMH of type 2 DM, uncontrolled, noncompliant with the medications presented to the ED with the chief complaints of ID, feeling tired for past 4 weeks which has been worsened for past couple of days which prompted him to visit ED . Patient reported poor appetite and increased frequency of micturition lately and dry mouth. Patient denied any fever, abdominal pain, dysuria, acute joint pain or swelling, sick contact, chest pain no shortness a breath, dysarthria or change in vision. Patient reported that he does not see any doctor and did not take any medication for diabetes for over 1 year. patient reported that he has been smoking 1 pack per day for 20 years, drinks 3-6 beers per day but denies other drug abuse. Home meds: Patient reported he has been taking insulin let us switch to oral medications metformin and glipizide and eventually he not refill the prescription and he has been not on medication for over 1 year. Patient seen and examined at the bedside. Patient reported improvement in his symptoms since admission, reported no new complaints. Overnight events reviewed, continuously monitor his blood glucose. DKA protocol. Objective vital signs Vital Sign Date Time Temp Pulse Resp B/P (MAP) Pulse Ox O2 Delivery O2 Flow Rate FiO2 03/09/25 08:00 98.4 91 11 142/87 (105) 95 98.4 03/09/25 08:00 Room Air* 0 21 Total Intake and Output 03/08/25 03/08/25 03/09/25 15:00 23:00 07:00 Intake Total 50 ml 2253 ml Balance 50 ml 2253 ml medications Current Medications Medications Dose Ordered Sig/Alyssa Route Start Time Stop Time Status Last Admin Dose Admin Sodium Chloride 10 ml Q8HR IV 03/08/25 22:00 03/09/25 06:10 10 ML Enoxaparin Sodium 40 mg DAILY SC 03/09/25 10:00 Dextrose 50 ml UD PRN IV 03/08/25 21:00 Pantoprazole Sodium 40 mg DAILY IV 03/09/25 10:00 Thiamine HCl 100 mg DAILY PO 03/09/25 10:00 Folic Acid 1 mg DAILY PO 03/09/25 10:00 Insulin Human Lispro 5 units TIDAC SC 03/09/25 07:00 Dextrose/Sodium Chloride 1,000 ml @ 150 mls/hr Q6H40M IV 03/09/25 03:30 03/09/25 08:47 150 MLS/HR Diagnostic Test (Pha) 1 strip ACHS 03/09/25 07:00 03/09/25 07:06 1 STRIP Examination Pt is lying on bed General Appearance: Alert, Oriented X3, Cooperative, Not in acute distress HEENT: Atraumatic, Mucous membranes moist/pink Respiratory: Clear to auscultation, Normal air movement, No added sounds Cardiovascular: Regular rate, Normal S1, Normal S2, No murmurs Abdominal: Active bowel sounds, Soft, no distention, no tenderness Extremities: No edema, Normal pulses, No tenderness/swelling Skin: No Significant rash, except past surgical scars Neuro: Normal speech, sensorimotor deficits none Psych/Mental Status: Mental status NL, Mood NL Nurse was there as sharperone during examination laboratory and microbiology Laboratory Tests 03/09/25 05:35 Test 03/09/25 05:35 Range/Units Serum Glucose 166 #H 74-106 mg/dL Labs and/or images reviewed: Labs reviewed by me, Image(s) reviewed by me Problem List/Assessment/Plan Problem List/Assessment/Plan # Uncontrolled type 2 DM complicated by DKA with a HbA1c 12.6 # DKA likely triggered by sepsis/ medication nonadherence # medication nonadherence # Mild hyponatremia likely dilutional from hyperglycemia # Anion gap metabolic acidosis with Respiratory alkalosis-improving - ABG showed anion gap metabolic acidosis with respiratory alkalosis - DKA protocol - initially given IV insulin, then bridging , later changed to subcutaneous - dextrose, NS/ D5W with Na Cl - Accu-Cheks and ISS - lab monitoring # sepsis likely triggered by UTI # Acute complicated UTI/ cystitis # Gram-positive bacteremia - evident on urinalysis - ordered urine bacterial, blood cultures - currently giving Rocephin 2g daily # alcohol abuse disorder/ dependence # tobacco abuse disorder/ dependence - counseled regarding cessation of alcohol and tobacco for more than 17 minutes and given education and resources - nicotine patch if needed - thiamine and folic acid as prescribed Protonix Lovenox Diabetic diet Goals of care discussed with the patient for more than 29 minutes: Full code status Case management discussed with Dr. Hill, patient and nurse Plan discussed with: Patient My Orders My Orders Orders - CORA CHAVEZ Procedure Category Date Status Time Osmolality, Serum LAB 03/09/25 In Process 07:17 Vitamin D, 25-Hydroxy LAB 03/09/25 In Process 07:17 Date of Service: March 09, 2025 Billing Provider: RAFAEL MERCADO MD Common Visit Codes: [id number] INP/OBS CARE(HIGH) CORA CHAVEZ March 09, 2025 09:27 RAFAEL MERCADO MD March 12, 2025 03:13
[2025-03-09] MEDS: PANTOPRAZOLE 40 MG/10 ML VIAL INJ IV SCH (10:19)
[2025-03-09] MEDS: THIAMINE HCL 100 MG TAB PO SCH (10:19)
[2025-03-09] MEDS: ENOXAPARIN SOD 40 MG/0.4 ML SYRINGE SC SCH (10:19)
[2025-03-09] MEDS: FOLIC ACID 1 MG TAB PO SCH (10:19)
[2025-03-09] MEDS ORDERED: DEXTROSE (50%) 50ML SYRG IV PRN (13:00)
[2025-03-09] MEDS: InsuLIN REG 1unit/0.01ml Soln (100units/ml) ONE (13:07)
[2025-03-09] MEDS: InsuLIN REG 1unit/0.01ml Soln (100units/ml) SC SCH ×2 (13:07→18:27)
[2025-03-09 14:49] VITALS: BP 128/72; PULSE 100; RESP 18; TEMP 98.6; O2SAT 98
[2025-03-09] MEDS: cefTRIAXone 2GM/50ML D5W 50 ML IV SCH (17:00)
[2025-03-09 20:00] VITALS: PULSE 88; PULSE 93; RESP 16; O2SAT 97
[2025-03-09] MEDS: INSULIN LANTUS (GLARGINE) 1 /0.01ml (100units/ml) SC SCH (20:35)
[2025-03-09 21:00] VITALS: BP 140/86; PULSE 88; RESP 16; TEMP 98.9; O2SAT 97
[2025-03-10] VITALS (8 sets, daily range): BP systolic 116–134; BP diastolic 69–84; PULSE 73–94; RESP 16–19; TEMP 97.6–99; O2SAT 95–97
[2025-03-10 06:25] LABS: Basophils # (auto) 0 10 ^3/uL (0-0.2); Basophils % (auto) 0.3 % (0.0-2.0); Eosinophils # (auto) 0.1 10 ^3/uL (0-0.8); Eosinophils % (auto) 0.7 % (0.0-7.0); Hematocrit 36.2 % (41.0-53.0); Hemoglobin 12.3 g/dL (13.5-17.5); Lymphocytes # (auto) 1.5 10 ^3/uL (0.4-5.4); Lymphocytes % (auto) 11.4 % (10.0-50.0); Mean Corpuscular Hemoglobin 28.4 pg (28.0-32.0); Mean Corpuscular Hgb Conc. 33.8 g/dL (32.0-36.0); Monocytes # (auto) 0.9 10 ^3/uL (0-1.3); Monocytes % (auto) 6.9 % (0.0-12.0); Neutrophils # (auto) 10.5 10 ^3/uL (1.6-8.6); Neutrophils % (auto) 80.7 % (37.0-80.0); Nucleated Red Blood Cells % 0.1 %; Platelet Count (auto) 410 10^3/uL (140-450); Red Blood Cells 4.31 10^6/uL (4.5-5.90); Red Cell Distribution Width 11.7 % (11.8-14.3)
[2025-03-10 06:46] LABS: Albumin 3.7 g/dL (3.2-4.8); Alkaline Phosphatase 108 U/L (46-116); Anion Gap 10 (5-15); Calcium 9.2 mg/dL (8.7-10.4); Carbon Dioxide 25 mmol/L (20-31); Chloride 105 mmol/L (98-107); Magnesium 1.7 mg/dL (1.6-2.6); Sodium 140 mmol/L (136-145); Total Protein 6.5 g/dL (5.7-8.2)
[2025-03-10 06:51] LABS: Alanine Aminotransferase < 9 U/L (7-40); Aspartate Aminotransferase < 8 U/L (13-40); Bilirubin, Total 0.2 mg/dL (0.2-1.0); Blood Urea Nitrogen 9 mg/dL (9-23); Glucose 117 mg/dL (74-106); Potassium 2.8 mmol/L (3.5-5.1)
[2025-03-10] MEDS ORDERED: VANCOMYCIN PER PHARMACY 0 MG IV SCH (11:15)
[2025-03-10] MEDS: InsuLIN REG 1unit/0.01ml Soln (100units/ml) SC SCH ×2 (11:30→21:35)
[2025-03-10] MEDS ORDERED: DEXTROSE (50%) 50ML SYRG IV PRN (11:30)
[2025-03-10] MEDS: ACCU-CHEK COMFORT CURVE STRIP VI SCH (11:37)
[2025-03-10] MEDS: VANCOMYCIN 1GM/200ML PM 200 ML IV ONE (11:54)
[2025-03-10] MEDS: MAGNESIUM SULFATE 1GM/100ML 100 ML IV ONE (11:55)
[2025-03-10] MEDS: POTASSIUM EFFERVESENT TAB 25 MEQ PO ONE (11:55)
[2025-03-10] MEDS: D5W/SOD CHLO 0.9% 1,000 ML IV SCH (15:00)
--- NOTE | 2025-03-10 15:59 | DVHPNRES ---
Progress Note Date Seen: March 10, 2025 Resident Creating Document: CORA CHAVEZ RESIDENT Has the PT tested + for MRSA If YES, has PT been informed?: No Medical Necessity Reason Pt with a Central, PICC or Fol: No Subjective Review of Systems Patient seen and examined at the bedside. Patient reported improvement in his symptoms since admission, reported no new complaints. Overnight events reviewed, continuously monitor his blood glucose. blood cultures, urine cultures positive for staph aureus, ordered new set of blood cultures. Antibiotics upgraded to vancomycin. Patient reports: Feels better Objective vital signs Vital Sign Date Time Temp Pulse Resp B/P (MAP) Pulse Ox O2 Delivery O2 Flow Rate FiO2 03/10/25 09:00 98.5 90 18 123/71 (88) 97 98.5 03/10/25 08:00 Room Air* 0 21 Total Intake and Output 03/09/25 03/09/25 03/10/25 15:00 23:00 07:00 Intake Total 750 ml 50 ml 600 ml Balance 750 ml 50 ml 600 ml medications Current Medications Medications Dose Ordered Sig/Alyssa Route Start Time Stop Time Status Last Admin Dose Admin Sodium Chloride 10 ml Q8HR IV 03/08/25 22:00 03/10/25 14:00 10 ML Enoxaparin Sodium 40 mg DAILY SC 03/09/25 10:00 03/10/25 10:00 40 MG Pantoprazole Sodium 40 mg DAILY IV 03/09/25 10:00 03/10/25 10:00 40 MG Thiamine HCl 100 mg DAILY PO 03/09/25 10:00 03/10/25 10:00 100 MG Folic Acid 1 mg DAILY PO 03/09/25 10:00 03/10/25 10:00 1 MG Vancomycin HCl 0 ml @ 0 mls/hr UD IV 03/10/25 11:15 Dextrose/Sodium Chloride 1,000 ml @ 75 mls/hr [id number] IV 03/10/25 11:30 03/10/25 15:00 75 MLS/HR Diagnostic Test (Pha) 1 strip ACHS 03/10/25 11:30 03/10/25 11:37 1 STRIP Insulin Human Regular HS SC 03/10/25 22:00 Insulin Human Regular AC SC 03/10/25 11:30 03/10/25 11:30 3 UNITS Dextrose 50 ml UD PRN IV 03/10/25 11:30 Examination Pt is lying on bed General Appearance: Alert, Oriented X3, Cooperative, Not in acute distress HEENT: Atraumatic, Mucous membranes moist/pink Respiratory: Clear to auscultation, Normal air movement, No added sounds Cardiovascular: Regular rate, Normal S1, Normal S2, No murmurs Abdominal: Active bowel sounds, Soft, no distention, no tenderness Extremities: No edema, Normal pulses, No tenderness/swelling Skin: No Significant rash, except past surgical scars Neuro: Normal speech, sensorimotor deficits none Psych/Mental Status: Mental status NL, Mood NL Nurse was there as sharperone during examination laboratory and microbiology Laboratory Tests 03/10/25 05:55 Test 03/10/25 05:55 Range/Units Serum Glucose 117 H 74-106 mg/dL Microbiology Date/Time Source Procedure Growth Status 03/08/25 22:22 Voided Urine Urine Culture - Preliminary Resulted 03/08/25 21:27 Blood Blood Culture - Preliminary Staphylococcus aureus Resulted Labs and/or images reviewed: Labs reviewed by me, Image(s) reviewed by me Problem List/Assessment/Plan Problem List/Assessment/Plan # Uncontrolled type 2 DM complicated by DKA with a HbA1c 12.6 # DKA likely triggered by sepsis/ medication nonadherence # medication nonadherence # Mild hyponatremia likely dilutional from hyperglycemia # Anion gap metabolic acidosis with Respiratory alkalosis-improving - ABG showed anion gap metabolic acidosis with respiratory alkalosis - DKA protocol - initially given IV insulin, then bridging , later changed to subcutaneous - DC D5W - Accu-Cheks and ISS - lab monitoring # sepsis likely triggered by UTI # Acute complicated UTI/ cystitis # Gram-positive bacteremia with Staph aureus - evident on urinalysis - ordered urine bacterial, blood cultures showed staph aureus - initially giving Rocephin 2g daily -start vancomycin - new set of blood cultures -echocardiogram # alcohol abuse disorder/ dependence # tobacco abuse disorder/ dependence - counseled regarding cessation of alcohol and tobacco for more than 17 minutes and given education and resources - nicotine patch if needed - thiamine and folic acid as prescribed Protonix Lovenox Diabetic diet Goals of care discussed with the patient for more than 29 minutes: Full code status Case management discussed with Dr. Hill, patient and nurse Plan discussed with: Patient My Orders My Orders Orders - CORA CHAVEZ RESIDENT Procedure Category Date Status Time Blood Culture ROCHELLE 03/10/25 In Process 11:05 Vancomycin Per PHA 03/10/25 In Process Pharmacy 11:15 D5w/Sod Chlo 0.9% PHA 03/10/25 In Process (D5w Ns 0.9%) 11:30 Glucose Blood PHA 03/10/25 In Process (Accu-Chek Comfort 11:30 Insulin R (Human) PHA 03/10/25 In Process (Insulin R) 22:00 Insulin R (Human) PHA 03/10/25 In Process (Insulin R) 11:30 Dextrose 50% Syringe PHA 03/10/25 In Process 11:30 Date of Service: March 10, 2025 Billing Provider: RAFAEL MERCADO MD Common Visit Codes: [id number] INP/OBS CARE(HIGH) CORA CHAVEZ RESIDENT March 10, 2025 15:59 RAFAEL MERCADO MD March 12, 2025 01:22
[2025-03-10] MEDS: VANCOMYCIN 1GM/200ML PM 200 ML IV SCH (18:00)
--- NOTE | 2025-03-10 22:46 | DVHSR ---
APPROVED REPORT EXAM: Two-dimensional and M-mode echocardiogram with Doppler and color Doppler. Blood Pressure: 123/71 mmHg INDICATION R/O Veg RISK FACTORS Height: 5' 11", Weight: 145 DIMENSIONS LVDd4.9 (3.8-5.7cm)LA (2D)3.5 (1.9-4.0cm)Aortic Root3.5 (2.0-3.7cm) LVDs3.4 (2.5-4.0cm)LA (MM) (1.9-4.0cm)Aortic Cusp Exc1.8 (1.5-2.0cm) EF (%) 60.0 (55-70%)Rt. Atrium3.5 (1.9-4.0cm)Asc. Aorta cm IVSd0.9 (0.7-1.1cm)RV (D) (1.8-2.4cm) PWd0.9 (0.7-1.1cm) Mitral Valve MitralMitral Stenosis E wave0.60m/sMV Mean GR.mmHg A wave0.60m/sMV Peak GR.mmHg E/A ratio1.02D MVAcm2 Aortic Valve Aortic ValveAortic Stenosis V10.90m/Mary Mean GR.2mmHg V21.00m/Mary Peak GR.5mmHg LVOT Diameter2.2 (1.8-2.4cm)Doppler AVA3.42cm2 Pulmonic Valve V20.60m/s Conclusion Technically good study. Sinus rhythm. Mild LV enlargement. Mild aortic root enlargement. EF of 40% with global hypokinesis. Mild TR. No pericardial effusion masses or vegetations.
[2025-03-11] VITALS (9 sets, daily range): BP systolic 104–132; BP diastolic 52–83; PULSE 77–89; RESP 14–18; TEMP 97.8–99.1; O2SAT 96–98
[2025-03-11] MEDS: POTASSIUM EFFERVESENT TAB 25 MEQ PO ONE (09:08)
[2025-03-11] MEDS: POTASSIUM CHL 20MEQ/100ML 100 ML IV ONE (09:24)
--- NOTE | 2025-03-11 10:40 | DVHPNRES ---
Progress Note Date Seen: March 11, 2025 Resident Creating Document: CORA CHAVEZ RESIDENT Has the PT tested + for MRSA If YES, has PT been informed?: No Medical Necessity Reason Pt with a Central, PICC or Fol: No Subjective Review of Systems Patient seen and examined at the bedside. No active complaints today. Monitor blood glucose. Echo showed 40% ejection fraction with global hypokinesis. Patient reports: Feels better Objective vital signs Vital Sign Date Time Temp Pulse Resp B/P (MAP) Pulse Ox O2 Delivery O2 Flow Rate FiO2 03/11/25 08:10 89 18 97 Room Air* 0 21 03/11/25 05:00 97.8 131/76 (94) 97.8 Total Intake and Output 03/10/25 03/10/25 03/11/25 15:00 23:00 07:00 Intake Total 350 ml 730 ml 800 ml Balance 350 ml 730 ml 800 ml medications Current Medications Medications Dose Ordered Sig/Alyssa Route Start Time Stop Time Status Last Admin Dose Admin Sodium Chloride 10 ml Q8HR IV 03/08/25 22:00 03/11/25 05:28 10 ML Enoxaparin Sodium 40 mg DAILY SC 03/09/25 10:00 03/11/25 09:10 40 MG Pantoprazole Sodium 40 mg DAILY IV 03/09/25 10:00 03/11/25 09:12 40 MG Thiamine HCl 100 mg DAILY PO 03/09/25 10:00 03/11/25 09:06 100 MG Folic Acid 1 mg DAILY PO 03/09/25 10:00 03/11/25 09:06 1 MG Vancomycin HCl 0 ml @ 0 mls/hr UD IV 03/10/25 11:15 Diagnostic Test (Pha) 1 strip ACHS 03/10/25 11:30 03/11/25 05:28 1 STRIP Insulin Human Regular HS SC 03/10/25 22:00 03/10/25 21:35 3 UNITS Insulin Human Regular AC SC 03/10/25 11:30 03/11/25 05:28 6 UNITS Dextrose 50 ml UD PRN IV 03/10/25 11:30 Vancomycin HCl 200 ml @ 200 mls/hr Q8H IV 03/10/25 18:00 03/11/25 09:31 200 MLS/HR Examination Pt is lying on bed General Appearance: Alert, Oriented X3, Cooperative, Not in acute distress HEENT: Atraumatic, Mucous membranes moist/pink Respiratory: Clear to auscultation, Normal air movement, No added sounds Cardiovascular: Regular rate, Normal S1, Normal S2, No murmurs Abdominal: Active bowel sounds, Soft, no distention, no tenderness Extremities: No edema, Normal pulses, No tenderness/swelling Skin: No Significant rash, except past surgical scars Neuro: Normal speech, sensorimotor deficits none Psych/Mental Status: Mental status NL, Mood NL Nurse was there as gamalielne during examination laboratory and microbiology Laboratory Tests 03/10/25 05:55 Test 03/10/25 05:55 Range/Units Serum Glucose 117 H 74-106 mg/dL Microbiology Date/Time Source Procedure Growth Status 03/08/25 22:22 Voided Urine Urine Culture - Final Staphylococcus aureus Complete 03/08/25 21:27 Blood Blood Culture - Final Staphylococcus aureus Complete Labs and/or images reviewed: Labs reviewed by me, Image(s) reviewed by me Problem List/Assessment/Plan Problem List/Assessment/Plan # Uncontrolled type 2 DM complicated by DKA with a HbA1c 12.6 # DKA likely triggered by sepsis/ medication nonadherence # medication nonadherence # Mild hyponatremia likely dilutional from hyperglycemia # Anion gap metabolic acidosis with Respiratory alkalosis-improving - ABG showed anion gap metabolic acidosis with respiratory alkalosis - DKA protocol - initially given IV insulin, then bridging , later changed to subcutaneous - DC D5W - Accu-Cheks and ISS - lab monitoring # New onset HFrEF EF 40% # Gram-positive bacteremia with Staph aureus - echocardiogram, showed EF 40% with global hypokinesis - BNP pending # Sepsis likely triggered by UTI # Acute complicated UTI/ cystitis # Gram-positive bacteremia with Staph aureus - evident on urinalysis - ordered urine bacterial, blood cultures showed staph aureus - initially giving Rocephin 2g daily, then discontinued - start vancomycin - new set of blood cultures - echocardiogram, showed EF 40% with global hypokinesis # alcohol abuse disorder/ dependence # tobacco abuse disorder/ dependence - counseled regarding cessation of alcohol and tobacco for more than 17 minutes and given education and resources - nicotine patch if needed - thiamine and folic acid as prescribed Protonix Lovenox Diabetic diet Goals of care discussed with the patient for more than 29 minutes: Full code status Case management discussed with Dr. Hill, patient and nurse Plan discussed with: Patient My Orders My Orders Orders - CORA CHAVEZ Procedure Category Date Status Time Blood Culture ROCHELLE 03/10/25 In Process 11:05 Vancomycin Per PHA 03/10/25 In Process Pharmacy 11:15 Echo 2d Mode Cardiac US 03/10/25 Resulted DOP 11:15 Glucose Blood PHA 03/10/25 In Process (Accu-Chek Comfort 11:30 Insulin R (Human) PHA 03/10/25 In Process (Insulin R) 22:00 Insulin R (Human) PHA 03/10/25 In Process (Insulin R) 11:30 Dextrose 50% Syringe PHA 03/10/25 In Process 11:30 Vancomycin Per DESIREE 03/11/25 In Process Pharmacy Protoc 12:00 Vancomycin,Trough LAB 03/11/25 Logged 11:00 Vancomycin 1gm/200ml PHA 03/10/25 In Process Pm 18:00 B-Type Natriuretic LAB 03/11/25 Logged Peptide 10:30 Date of Service: March 11, 2025 Billing Provider: RAFAEL MERCADO MD Common Visit Codes: [id number] INP/OBS CARE(HIGH) CORA CHAVEZ RESIDENT March 11, 2025 10:40 RAFAEL MERCADO MD March 12, 2025 01:29
[2025-03-11] MEDS: METOPROLOL SUCCINATE XL 50 MG TAB PO ONE (12:51)
[2025-03-11] MEDS ORDERED: BLOO-169 XX (14:19)
[2025-03-11] MEDS ORDERED: LANC-209 XX (14:19)
[2025-03-11] MEDS ORDERED: GLUC-224 VI (14:19)
[2025-03-11] MEDS ORDERED: ISOP70MI2 EX (14:19)
[2025-03-11] MEDS: SACUBITRIL-VALSARTAN 24mg/26mg TAB PO SCH (21:19)
[2025-03-12] VITALS (8 sets, daily range): BP systolic 107–129; BP diastolic 66–78; PULSE 76–88; RESP 14–18; TEMP 97.6–99.5; O2SAT 94–98
[2025-03-12 08:52] LABS: Anion Gap 10 (5-15); Calcium 9.1 mg/dL (8.7-10.4); Carbon Dioxide 27 mmol/L (20-31); Chloride 101 mmol/L (98-107); Sodium 138 mmol/L (136-145)
[2025-03-12 08:58] LABS: Blood Urea Nitrogen 9 mg/dL (9-23); Glucose 199 mg/dL (74-106); Magnesium 1.7 mg/dL (1.6-2.6); Potassium 3.4 mmol/L (3.5-5.1)
[2025-03-12 09:00] LABS: Basophils # (auto) 0.1 10 ^3/uL (0-0.2); Basophils % (auto) 0.5 % (0.0-2.0); Eosinophils # (auto) 0.2 10 ^3/uL (0-0.8); Eosinophils % (auto) 1.6 % (0.0-7.0); Hemoglobin 12.2 g/dL (13.5-17.5); Lymphocytes # (auto) 1.4 10 ^3/uL (0.4-5.4); Lymphocytes % (auto) 13.2 % (10.0-50.0); Mean Corpuscular Hemoglobin 29.1 pg (28.0-32.0); Mean Corpuscular Hgb Conc. 34.8 g/dL (32.0-36.0); Mean Corpuscular Volume 83.7 fL (80.0-100.0); Monocytes # (auto) 0.8 10 ^3/uL (0-1.3); Monocytes % (auto) 7.1 % (0.0-12.0); Neutrophils # (auto) 8.4 10 ^3/uL (1.6-8.6); Neutrophils % (auto) 77.6 % (37.0-80.0); Nucleated Red Blood Cells % 0.1 %; Platelet Count (auto) 394 10^3/uL (140-450); Red Blood Cells 4.19 10^6/uL (4.5-5.90); Red Cell Distribution Width 11.6 % (11.8-14.3); White Blood Cell 10.8 10^3/uL (4.4-10.8)
[2025-03-12] MEDS: METOPROLOL SUCCINATE XL 50 MG TAB PO SCH (10:39)
--- NOTE | 2025-03-12 17:25 | DVHPNRES ---
Progress Note Date Seen: March 12, 2025 Resident Creating Document: RICO VELASCO RESIDENT Has the PT tested + for MRSA If YES, has PT been informed?: No Medical Necessity Reason Pt with a Central, PICC or Fol: No Medical Necessity Reason History of present illness Doc Ace is a 49 years old male with a PMH of type 2 DM, uncontrolled, noncompliant with the medications presented to the ED with the chief complaints of ID, feeling tired for past 4 weeks which has been worsened for past couple of days which prompted him to visit ED . Patient reported poor appetite and increased frequency of micturition lately and dry mouth. Patient denied any fever, abdominal pain, dysuria, acute joint pain or swelling, sick contact, chest pain no shortness a breath, dysarthria or change in vision. Patient reported that he does not see any doctor and did not take any medication for diabetes for over 1 year. patient reported that he has been smoking 1 pack per day for 20 years, drinks 3-6 beers per day but denies other drug abuse. Past Medical History: Diabetes mellitus type 2 for last 3 years Past Surgical History: Patient denied having any surgery Family History: Mom had diabetes mellitus Past Social History: Lives with mom, smoker, 1 pack per year for 20 years, drinks beer 2-3 beer per day, denied doing drugs Home meds: Patient reported he has been taking insulin let us switch to oral medications metformin and glipizide and eventually he not refill the prescription and he has been not on medication for over 1 year. pn 03/12/2025 Patient seen and examined at the bedside. Patient reported improvement in his symptoms since admission, reported no new complaints. Overnight events reviewed, continuously monitor his blood glucose. DKA protocol. Blood sugar today is 224. Continue current management. Subjective Review of Systems Constitutional: Denies fever no chills no feeling of malaise HEENT: Denies headache, ear pain, ear discharges, conjunctivitis, nasal discharge throat pain Cardiovascular: Denies chest pain, palpitation, orthopnea, PND, or pedal edema Respiratory: Denies shortness of breath, cough cough, sputum production, hemoptysis, GI: Denies abdominal pain, nausea, vomiting, diarrhea, hematemesis, hematochezia, : Denies frequency, urgency, hematuria, Endocrine: Denies unintentional weight gain or weight loss, feeling of hot flashes, Drew: Denies easy bruising, bleeding disorders, epistaxis Musculoskeletal: Denies joint pains, muscle aches Psych: No evidence of depression, ashia, suicidal ideation Objective vital signs Vital Sign Date Time Temp Pulse Resp B/P (MAP) Pulse Ox O2 Delivery O2 Flow Rate FiO2 03/12/25 13:00 97.6 80 18 129/77 (94) 97 97.6 03/12/25 08:25 Room Air* 0 21 Total Intake and Output 03/11/25 03/11/25 03/12/25 15:00 23:00 07:00 Intake Total 937.5 ml 1000 ml 800 ml Balance 937.5 ml 1000 ml 800 ml medications Current Medications Medications Dose Ordered Sig/Alyssa Route Start Time Stop Time Status Last Admin Dose Admin Sodium Chloride 10 ml Q8HR IV 03/08/25 22:00 03/12/25 16:23 10 ML Enoxaparin Sodium 40 mg DAILY SC 03/09/25 10:00 03/12/25 10:40 40 MG Pantoprazole Sodium 40 mg DAILY IV 03/09/25 10:00 03/12/25 10:30 40 MG Thiamine HCl 100 mg DAILY PO 03/09/25 10:00 03/12/25 10:30 100 MG Folic Acid 1 mg DAILY PO 03/09/25 10:00 03/12/25 10:30 1 MG Vancomycin HCl 0 ml @ 0 mls/hr UD IV 03/10/25 11:15 Diagnostic Test (Pha) 1 strip ACHS 03/10/25 11:30 03/12/25 11:37 1 STRIP Insulin Human Regular HS SC 03/10/25 22:00 03/11/25 21:20 8 UNITS Insulin Human Regular AC SC 03/10/25 11:30 03/12/25 11:36 12 UNITS Dextrose 50 ml UD PRN IV 03/10/25 11:30 Vancomycin HCl 200 ml @ 200 mls/hr Q8H IV 03/10/25 18:00 03/12/25 10:29 200 MLS/HR Metoprolol Succinate 25 mg DAILY PO 03/12/25 10:00 03/12/25 10:39 25 MG Sacubitril/ Valsartan 1 tab BID PO 03/11/25 22:00 03/12/25 10:30 1 TAB Examination General Appearance: Alert, Oriented X3, Cooperative, No acute distress HEENT: Atraumatic, PERRLA, EOMI, Mucous membrane moist/pink Respiratory: Clear to auscultation, Normal air movement Cardiovascular: Regular rate, Normal S1, Normal S2, No murmurs, no chest wall tenderness Abdominal: NO distention, no tenderness, bowel sounds present, no scars noted Extremities: No clubbing, No cyanosis, No edema, Normal pulses, No tenderness/swelling, bilateral chronic healed wound with hyperpigmentation Skin: No rashes, No breakdown, No significant lesion Neuro: Normal gait, Normal speech, Strength at 5/5 X4 ext, Normal tone, Sensation intact, Cranial nerves 3-12 NL, Reflexes 2+ Psych/Mental Status: Mental status NL, Mood NL laboratory and microbiology Laboratory Tests 03/12/25 07:33 Test 03/12/25 07:33 Range/Units Serum Glucose 199 H 74-106 mg/dL Microbiology Date/Time Source Procedure Growth Status 03/10/25 11:16 Blood Blood Culture - Preliminary Staphylococcus aureus Resulted 03/08/25 22:22 Voided Urine Urine Culture - Final Staphylococcus aureus Complete Problem List/Assessment/Plan Problem List/Assessment/Plan Assessment/Plan # Uncontrolled type 2 DM complicated by DKA with a HbA1c 12.6 # DKA likely triggered by sepsis/ medication nonadherence # medication nonadherence # Mild hyponatremia likely dilutional from hyperglycemia # Anion gap metabolic acidosis with Respiratory alkalosis-improving - ABG showed anion gap metabolic acidosis with respiratory alkalosis - initially given IV insulin, then bridging , later changed to subcutaneous - DC D5W -> 8 units Lantus at night, continue moderate sliding scale - Accu-Cheks and ISS - lab monitoring # New onset HFrEF EF 40% # Gram-positive bacteremia with Staph aureus - echocardiogram, showed EF 40% with global hypokinesis - BNP: 102 # Recurrent bacteremia - Repeat blood culture - cardiology consulted rule out valvular vegetations # Sepsis likely triggered by UTI # Acute complicated UTI/ cystitis # Gram-positive bacteremia with Staph aureus - evident on urinalysis - ordered urine bacterial, blood cultures showed staph aureus - initially giving Rocephin 2g daily, then discontinued - start vancomycin - new set of blood cultures still positive - echocardiogram, showed EF 40% with global hypokinesis # alcohol abuse disorder/ dependence # tobacco abuse disorder/ dependence - counseled regarding cessation of alcohol and tobacco for more than 17 minutes and given education and resources - nicotine patch if needed - thiamine and folic acid as prescribed Protonix Lovenox Diabetic diet Goals of care discussed with the patient for more than16 minutes: Full code status Case discussed with Dr. Hill, patient and nurse Plan discussed with: Patient Plan discussed with: Patient Dietary Evaluation Review Recommendations by RD: Dietary education by RD Comments: 1) Encourage optimal PO intake. Advise patient to limit his intake of added sugars including desserts and sugar-sweetened beverages. Prioritize natural sugar substitutes such as Stevia and/or monk fruit. Pair carbohydrates with protein to promote glycemic management and select whole grains and non-starchy vegetables to increase fiber. 2) Refer to outpatient RD/[facility] for diabetes education 3) Consider referral to endocrinology or pharmacy for medication reconciliation upon d/c 4) If d/c with insulin regimen, order CGM for SMBG 5) Follow-up with clinical social work aide regarding alcohol abuse 6) Continue to monitor I&O, labs, and skin integrity Expected Outcomes/Goals: 1) appetite and labs to improve 2) f/u in 3-5 days RICO VELASCO RESIDENT March 12, 2025 17:25
[2025-03-12] MEDS: INSULIN LANTUS (GLARGINE) 1 /0.01ml (100units/ml) SC SCH (21:18)
[2025-03-13 01:00] VITALS: BP 117/71; PULSE 82; RESP 16; TEMP 99.7; O2SAT 96
[2025-03-13 05:00] VITALS: BP 119/73; PULSE 78; RESP 14; TEMP 99.7; O2SAT 97
[2025-03-13 07:07] LABS: Basophils # (auto) 0 10 ^3/uL (0-0.2); Basophils % (auto) 0.5 % (0.0-2.0); Eosinophils # (auto) 0.2 10 ^3/uL (0-0.8); Eosinophils % (auto) 1.9 % (0.0-7.0); Hematocrit 36.8 % (41.0-53.0); Hemoglobin 12.6 g/dL (13.5-17.5); Lymphocytes # (auto) 1.6 10 ^3/uL (0.4-5.4); Lymphocytes % (auto) 16.3 % (10.0-50.0); Mean Corpuscular Hemoglobin 28.8 pg (28.0-32.0); Mean Corpuscular Hgb Conc. 34.3 g/dL (32.0-36.0); Mean Corpuscular Volume 83.9 fL (80.0-100.0); Monocytes # (auto) 0.8 10 ^3/uL (0-1.3); Monocytes % (auto) 7.7 % (0.0-12.0); Neutrophils # (auto) 7.4 10 ^3/uL (1.6-8.6); Neutrophils % (auto) 73.6 % (37.0-80.0); Platelet Count (auto) 406 10^3/uL (140-450); Red Blood Cells 4.38 10^6/uL (4.5-5.90); Red Cell Distribution Width 11.6 % (11.8-14.3); White Blood Cell 10.1 10^3/uL (4.4-10.8)
[2025-03-13 08:00] VITALS: PULSE 100; PULSE 76
[2025-03-13 10:34] LABS: Anion Gap 11 (5-15); Carbon Dioxide 26 mmol/L (20-31); Chloride 101 mmol/L (98-107); Potassium 3.8 mmol/L (3.5-5.1); Sodium 138 mmol/L (136-145)
[2025-03-13 10:40] LABS: BUN/Creatinine Ratio 13.6 (10.0-20.0)
[2025-03-13 10:42] LABS: Blood Urea Nitrogen 9 mg/dL (9-23); Glucose 262 mg/dL (74-106)
--- NOTE | 2025-03-13 11:20 | DVHPNRES ---
Progress Note Date Seen: March 13, 2025 Resident Creating Document: CORA CHAVEZ RESIDENT Has the PT tested + for MRSA If YES, has PT been informed?: No Medical Necessity Reason Pt with a Central, PICC or Fol: No Subjective Review of Systems Patient seen and examined at the bedside. No active complaints today. Adjusted insulin Lantus. Pending Cardiology consult and ordered new set of blood cultures. Patient reports: Feels better Objective vital signs Vital Sign Date Time Temp Pulse Resp B/P (MAP) Pulse Ox O2 Delivery O2 Flow Rate FiO2 03/13/25 08:00 100 Room Air* 0 21 03/13/25 05:00 99.7 14 119/73 (88) 97 99.7 Total Intake and Output 03/12/25 03/12/25 03/13/25 15:00 23:00 07:00 Intake Total 200 ml 1000 ml 1000 ml Balance 200 ml 1000 ml 1000 ml medications Current Medications Medications Dose Ordered Sig/Alyssa Route Start Time Stop Time Status Last Admin Dose Admin Sodium Chloride 10 ml Q8HR IV 03/08/25 22:00 03/13/25 05:48 10 ML Enoxaparin Sodium 40 mg DAILY SC 03/09/25 10:00 03/12/25 10:40 40 MG Pantoprazole Sodium 40 mg DAILY IV 03/09/25 10:00 03/12/25 10:30 40 MG Thiamine HCl 100 mg DAILY PO 03/09/25 10:00 03/12/25 10:30 100 MG Folic Acid 1 mg DAILY PO 03/09/25 10:00 03/12/25 10:30 1 MG Vancomycin HCl 0 ml @ 0 mls/hr UD IV 03/10/25 11:15 Diagnostic Test (Pha) 1 strip ACHS 03/10/25 11:30 03/13/25 06:14 1 STRIP Insulin Human Regular HS SC 03/10/25 22:00 03/12/25 21:19 4 UNITS Insulin Human Regular AC SC 03/10/25 11:30 03/13/25 06:14 6 UNITS Dextrose 50 ml UD PRN IV 03/10/25 11:30 Vancomycin HCl 200 ml @ 200 mls/hr Q8H IV 03/10/25 18:00 03/13/25 01:36 200 MLS/HR Metoprolol Succinate 25 mg DAILY PO 03/12/25 10:00 03/12/25 10:39 25 MG Sacubitril/ Valsartan 1 tab BID PO 03/11/25 22:00 03/12/25 21:21 1 TAB Insulin Glargine 12 units HS SC 03/13/25 22:00 Examination Pt is lying on bed General Appearance: Alert, Oriented X3, Cooperative, Not in acute distress HEENT: Atraumatic, Mucous membranes moist/pink Respiratory: Clear to auscultation, Normal air movement, No added sounds Cardiovascular: Regular rate, Normal S1, Normal S2, No murmurs Abdominal: Active bowel sounds, Soft, no distention, no tenderness Extremities: No edema, Normal pulses, No tenderness/swelling Skin: No Significant rash, except past surgical scars Neuro: Normal speech, sensorimotor deficits none Psych/Mental Status: Mental status NL, Mood NL Nurse was there as sharperone during examination laboratory and microbiology Laboratory Tests 03/13/25 06:05 Test 03/13/25 06:05 Range/Units Serum Glucose 262 H 74-106 mg/dL Microbiology Date/Time Source Procedure Growth Status 03/10/25 11:16 Blood Blood Culture - Preliminary Staphylococcus aureus Resulted 03/08/25 22:22 Voided Urine Urine Culture - Final Staphylococcus aureus Complete Labs and/or images reviewed: Labs reviewed by me, Image(s) reviewed by me Problem List/Assessment/Plan Problem List/Assessment/Plan # Uncontrolled type 2 DM complicated by DKA with a HbA1c 12.6 # DKA likely triggered by sepsis/ medication nonadherence # medication nonadherence # Mild hyponatremia likely dilutional from hyperglycemia # Anion gap metabolic acidosis with Respiratory alkalosis-improving - ABG showed anion gap metabolic acidosis with respiratory alkalosis - DKA protocol - initially given IV insulin, then bridging , later changed to subcutaneous - DC D5W - Accu-Cheks and ISS - lab monitoring # New onset HFrEF EF 40% # Gram-positive bacteremia with Staph aureus - echocardiogram, showed EF 40% with global hypokinesis - BNP pending # Sepsis likely triggered by UTI # Acute complicated UTI/ cystitis # Gram-positive bacteremia with Staph aureus # recurrent bacteremia - evident on urinalysis - ordered urine bacterial, blood cultures showed staph aureus - initially giving Rocephin 2g daily, then discontinued - start vancomycin - new set of blood cultures - echocardiogram, showed EF 40% with global hypokinesis - cardiology consult for possible KIMBERLEE # alcohol abuse disorder/ dependence # tobacco abuse disorder/ dependence - counseled regarding cessation of alcohol and tobacco for more than 17 minutes and given education and resources - nicotine patch if needed - thiamine and folic acid as prescribed Protonix Lovenox Diabetic diet Goals of care discussed with the patient for more than 29 minutes: Full code status Case management discussed with Dr. Hill, patient and nurse Plan discussed with: Patient My Orders My Orders Orders - CORA CHAVEZ RESIDENT Procedure Category Date Status Time Vancomycin,Trough LAB 03/14/25 Verified 17:00 Vancomycin Per DESIREE 03/12/25 In Process Pharmacy Protoc 17:49 Insulin Lantus PHA 03/13/25 In Process (Glargine) (Lantus) 22:00 Dietary Evaluation Review Recommendations by RD: Dietary education by RD Comments: 1) Encourage optimal PO intake. Advise patient to limit his intake of added sugars including desserts and sugar-sweetened beverages. Prioritize natural sugar substitutes such as Stevia and/or monk fruit. Pair carbohydrates with protein to promote glycemic management and select whole grains and non-starchy vegetables to increase fiber. 2) Refer to outpatient RD/[facility] for diabetes education 3) Consider referral to endocrinology or pharmacy for medication reconciliation upon d/c 4) If d/c with insulin regimen, order CGM for SMBG 5) Follow-up with social worker school regarding alcohol abuse 6) Continue to monitor I&O, labs, and skin integrity Expected Outcomes/Goals: 1) appetite and labs to improve 2) f/u in 3-5 days CORA CHAVEZ RESIDENT March 13, 2025 11:20
[2025-03-13 13:00] VITALS: BP 118/68; PULSE 76; RESP 18; TEMP 99.1; O2SAT 99
[2025-03-13] MEDS: diphenhdrAMINE HCL 50 MG/1 ML VL IV ONE (13:00)
[2025-03-13] MEDS: LIDOCAINE VISCOUS 2% 15ML UD PO ONE (13:22)
[2025-03-13] MEDS: fentaNYL CITRATE 100 MCG/2 ML VL IV ONE (13:32)
[2025-03-13] MEDS: MIDAZOLAM HCL 2MG/2ML 2ml VIAL (1mg/ml) IV ONE (13:34)
--- NOTE | 2025-03-13 13:47 | DVHOP2 ---
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 The patient was brought to the cardiac carpenter labor supervisor in n.p.o. state. the patient was given 15 ml of oral viscous lidocaine. the patient was placed in a left lateral decubitus position with bite block in mouth. NExt conscious sedation was administered per carpenter labor supervisor protocol with 2__ mg of versed and _50__ mcg of fentanyl. Next a KIMBERLEE probe was advanced to the mid esophagus with ease and multiple planar images obtained. At the completion of the procedure , probe was removed and there were no immediate complications. FINDINGS: Left Ventricle: Normal LV size and function, LVEF estimated at 50 % lvef 40% on surface echo but appears low normal here. moderate LVH Right Ventricle: NOrmal RV size and function Left atrium: enlarged, Right atrium: normal Left atrial appendage: no thrombus noted, Aortic valve: trileaflet valve, no severe or AI Mitral Valve: structurally normal, trace mitral regurg, no MS Tricuspid Valve: trace tricuspid regurgitaiton, no TS Pulmonic Valve: strucutrally normal, no severe PIor PS Interatrial septum: negative color flow for R to L shunt Ascending aorta: no severe plaquing CONCLUSIONS: 1. no valvular vegetations noted CHRISTIANO RAMOS MD March 13, 2025 13:47
--- NOTE | 2025-03-13 14:33 | DVHINCON2 ---
Date Seen: March 13, 2025 Referring Physician MD Jazzmine Reason for Consultation KIMBERLEE to rule out valvular vegetation History of Present Illness This is a 49-year-old male with past medical history of diabetes type 2 (nonadherence to the medicine), came to the hospital due to generalized weakness, decreased appetite, frequency and polyuria. Patient was admitted 5 days back due to DKA , blood culture on 2 occasions Staph aureus, cardiology consulted for transesophageal echocardiogram for possible endocarditis/valvular vegetation. PMHx: Diabetes type 2 PSHx: Nonsignificant Family history: Noncontributory Social history: Current smoker with 20 pack year history, heavy alcohol user (6 beers per day) Home medication: Patient was previously prescribed insulin and glyburide, per patient he has stopped taking medicine 3 years back because he was feeling good Allergic history: Acetaminophen and hydrocodone Patient seen and examined at the bedside. Patient is currently has no active symptoms. Past Medical History Per H&P Past Surgical History Per H&P Family History: Diabetes mellitus G8 MOTHER Liver transplant G8 MOTHER Family History Per H&P Social History Per H&P Allergies: Coded Allergies: Acetaminophen (Verified Allergy, Intermediate, 03/08/25) Hydrocodone (Verified Allergy, Intermediate, 03/08/25) Home Meds Active Scripts Glucose Blood (EASY TOUCH GLUCOSE TEST S) Strips Rita, 1 EA AC for 30 Days, #120 MISC Prov:CORA CHAVEZ 03/11/25 Isopropyl Alcohol (Isopropyl Alcohol Wipes) 70 % Mis, 70 % EX AC for 30 Days, #120 MISC Prov:CORA CHAVEZ 03/11/25 Lancets (Gnp Lancets Thin 26G) Thin 26G Mis, 26G XX AC, #120 achs Prov:CORA CHAVEZ 03/11/25 Blood Glucose Monitoring Suppl (EASY TOUCH GLUCOSE MONITO) Monitor Kit, UNIT XX AC, #120 achs Prov:CORA CHAVEZ 03/11/25 Ibuprofen Micronized (MOTRIN TABLET) 600 Mg Tb, 600 MG PO TID PRN for 20 Days, #60 TAB *Black box warning-NSAIDS can increase risk of TN & hypertension, GI irritation, ulceration, bleed, perferation. Prov:MARIA LUISA ZAFAR MD 01/27/22 Sitagliptin-Metformin Hcl (JANUMET XR) 1 Tab Tab, 1 TAB PO BID, #180 TAB Prov:MARIA LUISA ZAFAR MD 01/27/22 Reported Medications Glipizide (Glipizide) 10 Mg Tab, 10 MG PO DAILY, TAB 01/25/22 Current Medications Current Medications Medications (Trade) Dose Ordered Sig/Alyssa Route PRN Reason Start Time Stop Time Status Last Admin Insulin Glargine (Lantus) 8 units HS SC 03/12/25 22:00 03/13/25 09:53 DC 03/12/25 21:18 Insulin Glargine (Lantus) 12 units HS SC 03/13/25 22:00 Review of Systems Per H&P Vital Signs Vital Signs Date Time Temp Pulse Resp B/P (MAP) Pulse Ox O2 Delivery O2 Flow Rate FiO2 03/13/25 13:32 133/76 03/13/25 08:00 100 Room Air* 0 21 03/13/25 05:00 99.7 14 97 99.7 Physical Exam General Appearance: Alert, Oriented X3, Cooperative, No acute distress HEENT: Atraumatic, PERRLA, EOMI, Mucous membrane moist/pink Respiratory: Clear to auscultation, Normal air movement Cardiovascular: Regular rate, Normal S1, Normal S2, No murmurs, no chest wall tenderness Abdominal: Normal bowel sounds, Soft, No tenderness, No hepatospenomegaly, No masses Extremities: No clubbing, No cyanosis, No edema, Normal pulses, No tenderness/swelling Skin: No rashes, No breakdown, No significant lesion Neuro: Normal gait, Normal speech, Strength at 5/5 X4 ext, Normal tone, Sensation intact, Cranial nerves 3-12 NL, Reflexes 2+ Psych/Mental Status: Mental status NL, Mood NL Labs/Diagnostic Data Labs Test 03/13/25 10:58 03/13/25 06:05 03/12/25 16:55 03/12/25 07:33 Range/Units POC Glucose 129 H 70-106 mg/dl White Blood Count 10.1 4.4-10.8 10^3/uL Red Blood Count 4.38 L 4.5-5.90 10^6/uL Hemoglobin 12.6 L 13.5-17.5 g/dL Hematocrit 36.8 L 41.0-53.0 % Mean Corpuscular Volume 83.9 80.0-100.0 fL Mean Corpuscular Hemoglobin 28.8 28.0-32.0 pg Mean Corpuscular Hemoglobin Concent 34.3 32.0-36.0 g/dL Red Cell Distribution Width 11.6 L 11.8-14.3 % Platelet Count 406 140-450 10^3/uL Mean Platelet Volume 7.4 6.9-10.8 fL Neutrophils (%) (Auto) 73.6 37.0-80.0 % Lymphocytes (%) (Auto) 16.3 10.0-50.0 % Monocytes (%) (Auto) 7.7 0.0-12.0 % Eosinophils (%) (Auto) 1.9 0.0-7.0 % Basophils (%) (Auto) 0.5 0.0-2.0 % Neutrophils # (Auto) 7.4 1.6-8.6 10 ^3/uL Lymphocytes # (Auto) 1.6 0.4-5.4 10 ^3/uL Monocytes # (Auto) 0.8 0-1.3 10 ^3/uL Eosinophils # (Auto) 0.2 0-0.8 10 ^3/uL Basophils # (Auto) 0 0-0.2 10 ^3/uL Nucleated Red Blood Cells 0.0 % Sodium Level 138 136-145 mmol/L Potassium Level 3.8 3.5-5.1 mmol/L Chloride Level 101 98-107 mmol/L Carbon Dioxide Level 26 20-31 mmol/L Anion Gap 11 5-15 Blood Urea Nitrogen 9 9-23 mg/dL Creatinine 0.66 L 0.700-1.30 mg/dL Glomerular Filtration Rate Calc 116 >90 mL/min BUN/Creatinine Ratio 13.6 10.0-20.0 Serum Glucose 262 H 74-106 mg/dL Calcium Level 9.0 8.7-10.4 mg/dL Vancomycin Level Trough 15.0 H 5-10 ug/mL Magnesium Level 1.7 1.6-2.6 mg/dL Test 03/11/25 11:25 03/10/25 05:55 03/09/25 05:35 03/09/25 00:03 Range/Units B-Type Natriuretic Peptide 102.89 0-100 pg/mL Total Bilirubin 0.2 0.2-1.0 mg/dL Aspartate Amino Transferase (AST) < 8 L 13-40 U/L Alanine Aminotransferase (ALT) < 9 7-40 U/L Alkaline Phosphatase 108 46-116 U/L Total Protein 6.5 5.7-8.2 g/dL Albumin 3.7 3.2-4.8 g/dL Serum Osmolality 291 278-298 mOsm/kg Lactic Acid Level 1.2 0.4-2.0 mmol/L Phosphorus Level 2.1 L 2.4-5.1 mg/dL Vitamin B12 Level 585 211-911 pg/mL Vitamin D 25-Hydroxy 9.3 L 30.0-100 ng/mL Beta-Hydroxybutyric Acid 1.289 H < 0.4 mmol/L Influenza Type A Antigen Negative Negative Influenza Type B Antigen Negative Negative SARS-CoV-2 Antigen (Rapid) Negative NEGATIVE Test 03/08/25 22:49 03/08/25 22:22 03/08/25 21:27 03/08/25 21:12 Range/Units Thyroid Stimulating Hormone (TSH) 1.51 0.55-4.78 uIU/mL Urine Color Light-yellow Yellow Urine Clarity Clear Clear Urine pH 5.0 5.0-9.0 Urine Specific [place] 1.027 1.001-1.035 Urine Protein Negative Negative Urine Ketones 2+ H Negative Urine Blood 1+ H Negative /uL Urine Nitrite Negative Negative Urine Bilirubin Negative Negative Urine Urobilinogen Normal Negative mg/dL Urine Leukocyte Esterase 1+ Negative /uL Urine RBC 4 0 - 3 /hpf Urine Microscopic WBC 53 H 0-3 /HPF Urine Squamous Epithelial Cells Few <5 /hpf Urine Bacteria None seen None Seen /hpf Urine Glucose 4+ H Normal mg/dL Urine Opiates Screen Neg NEGATIVE Urine Fentanyl Screen Neg NEGATIVE Urine Barbiturates Screen Neg NEGATIVE Urine Phencyclidine Screen Neg NEGATIVE Urine Amphetamines Screen Neg NEGATIVE Urine Benzodiazepines Screen Neg NEGATIVE Urine Cocaine Screen Neg NEGATIVE Urine Cannabinoids Screen Neg NEGATIVE Plasma/Serum Blood Alcohol 7.5 <10 mg/dL Blood Gas Specimen Type Arterial Blood Gas Sample Site Left radial Blood Gas Patient Temperature 37.0 Arterial Blood Date Drawn [id number] Arterial Blood pH 7.418 7.350-7.450 Arterial Blood Partial Pressure CO2 23.4 L 35.0-48.0 mmHg Arterial Blood Partial Pressure O2 84.7 83.0-108.0 mmHg Arterial Blood HCO3 14.8 L 21.0-28.0 mmol/L Arterial Blood Oxygen Saturation 96.2 94.0-98.0 % Arterial Blood Base Excess -7.7 L -2.0-3.0 mmol/L Arterial Blood Oxyhemoglobin 95.4 94.0-98.0 % Arterial Blood Carboxyhemoglobin 0.3 L 0.5-1.5 % Arterial Blood Methemoglobin 0.5 0.0-1.5 % Song Test Yes Blood Gas Total Hemoglobin 13.80 13.5-17.5 g/dL Blood Gas Liter Flow 0.00 Blood Gas Modality Room air FiO2 % 21.0 Test 03/08/25 17:27 Range/Units Hemoglobin A1c 12.6 H <5.7 % A1C Microbiology Date/Time Source Procedure Growth Status 03/10/25 11:16 Blood Blood Culture - Preliminary Staphylococcus aureus Resulted 03/08/25 22:22 Voided Urine Urine Culture - Final Staphylococcus aureus Complete Assessment Uncontrolled diabetes type 2 with hyperglycemia DKA Current smoker Alcohol use disorder Medicine nonadherence * EKG, shows normal sinus rhythm with no significant ST or T-wave changes * Trop I and BNP is are within normal limits * Transesophageal echo shows, Normal LV size and function, LVEF estimated at 50 %. moderate LVH. Grossly normal valves with no vegetation Plan/Recommendation (Case discussed with Dr. Ramos) * Considering patient's current clinical status, normal EKG, normal KIMBERLEE, no Cardiology woke up required at the moment * We sign of the patient, follow up with Cardiology on outpatient basis * Keep K above 4, and Mag above 2 * Rest of plan, per primary team Thank you for allowing us to participate in this patient's care. Please call if you have any questions or concerns. Plan discussed with: Patient, Other NYHA Physical activity limitations: NA Date of Service: March 13, 2025 Billing Provider: CHRISTIANO RAMOS MD Cardiology Common Codes: 78085-[id number] INP/OBS CARE (High) RUBENZAIDOLGAFRANCISCO RESDIENT March 13, 2025 14:33
[2025-03-13] MEDS: MAGNESIUM SULFATE 1GM/100ML 100 ML IV ONE (15:12)
[2025-03-13 20:00] VITALS: PULSE 79; RESP 17; O2SAT 97
[2025-03-13 21:00] VITALS: BP 118/78; PULSE 88; RESP 17; TEMP 98.1; O2SAT 97
[2025-03-13] MEDS: INSULIN LANTUS (GLARGINE) 1 /0.01ml (100units/ml) SC SCH (21:25)
[2025-03-14 01:00] VITALS: BP 107/63; PULSE 82; RESP 17; TEMP 98; O2SAT 98
[2025-03-14 05:00] VITALS: BP 121/74; PULSE 76; RESP 18; TEMP 97.8; O2SAT 98
[2025-03-14 06:57] LABS: Basophils # (auto) 0.1 10 ^3/uL (0-0.2); Basophils % (auto) 0.6 % (0.0-2.0); Eosinophils # (auto) 0.2 10 ^3/uL (0-0.8); Eosinophils % (auto) 2.1 % (0.0-7.0); Hematocrit 33.4 % (41.0-53.0); Hemoglobin 11.5 g/dL (13.5-17.5); Lymphocytes # (auto) 1.6 10 ^3/uL (0.4-5.4); Lymphocytes % (auto) 16.6 % (10.0-50.0); Mean Corpuscular Hgb Conc. 34.3 g/dL (32.0-36.0); Mean Corpuscular Volume 84.5 fL (80.0-100.0); Monocytes # (auto) 0.7 10 ^3/uL (0-1.3); Monocytes % (auto) 7.8 % (0.0-12.0); Neutrophils # (auto) 6.8 10 ^3/uL (1.6-8.6); Neutrophils % (auto) 72.9 % (37.0-80.0); Platelet Count (auto) 411 10^3/uL (140-450); Red Blood Cells 3.95 10^6/uL (4.5-5.90); Red Cell Distribution Width 11.6 % (11.8-14.3); White Blood Cell 9.3 10^3/uL (4.4-10.8)
[2025-03-14 06:59] LABS: Anion Gap 8 (5-15); Carbon Dioxide 27 mmol/L (20-31); Chloride 104 mmol/L (98-107); Potassium 3.6 mmol/L (3.5-5.1); Sodium 139 mmol/L (136-145)
[2025-03-14 07:05] LABS: BUN/Creatinine Ratio 17.9 (10.0-20.0); Blood Urea Nitrogen 10 mg/dL (9-23)
[2025-03-14 07:07] LABS: Calcium 8.2 mg/dL (8.7-10.4); Glucose 192 mg/dL (74-106)
[2025-03-14 08:00] VITALS: PULSE 71; PULSE 75; RESP 15; O2SAT 99
--- NOTE | 2025-03-14 08:58 | ECG ---
[facility] Test Date: 2025-03-13 Test Time: 10:45:18 Pat Name: YADI GANN Department: Respiratoy Room: 0239T Gender: M Repair Miller: : 1975 Requested By: PEDRO DUDLEY Order Number: [id number] Reading MD: Measurements Intervals [place] Rate: 83 P: 79 IN: 128 QRS: 89 QRSD: 96 T: 59 QT: 392 QTc: 461 Interpretive Statements Sinus rhythm Probable left atrial enlargement Please click the below link to view image of tracing.
[2025-03-14 09:00] VITALS: BP 128/75; PULSE 75; RESP 15; TEMP 98.5; O2SAT 99
[2025-03-14 13:00] VITALS: BP 122/73; PULSE 73; RESP 15; TEMP 98.4; O2SAT 98
[2025-03-14] MEDS ORDERED: EMPA1TAB PO (13:05)
[2025-03-14] MEDS ORDERED: INSUINJ37 SC (13:05)
[2025-03-14] MEDS ORDERED: METO25TA93 PO (13:05)
[2025-03-14] MEDS ORDERED: INSU100I54 SC (13:05)
[2025-03-14] MEDS ORDERED: METF-1145 PO (13:05)
[2025-03-14] MEDS ORDERED: SACU1CAP2 PO (13:05)
[2025-03-14] MEDS ORDERED: BACDST PO (13:05)
--- NOTE | 2025-03-14 13:59 | DVHDSRES ---
Discharge Summary Date of Admission Resident Creating Document: CORA CHAVEZ RESIDENT March 08, 2025 at 20:51 Date of Discharge: March 14, 2025 Admitting Diagnosis Type 2 DM uncontrolled, complicated by DKA Labs/Diagnostic Data: Laboratory Results Test 03/14/25 11:30 03/14/25 05:39 03/12/25 16:55 03/12/25 07:33 POC Glucose 259 mg/dl (70-106) White Blood Count 9.3 10^3/uL (4.4-10.8) Red Blood Count 3.95 10^6/uL (4.5-5.90) Hemoglobin 11.5 g/dL (13.5-17.5) Hematocrit 33.4 % (41.0-53.0) Mean Corpuscular Volume 84.5 fL (80.0-100.0) Mean Corpuscular Hemoglobin 29.0 pg (28.0-32.0) Mean Corpuscular Hemoglobin Concent 34.3 g/dL (32.0-36.0) Red Cell Distribution Width 11.6 % (11.8-14.3) Platelet Count 411 10^3/uL (140-450) Mean Platelet Volume 7.1 fL (6.9-10.8) Neutrophils (%) (Auto) 72.9 % (37.0-80.0) Lymphocytes (%) (Auto) 16.6 % (10.0-50.0) Monocytes (%) (Auto) 7.8 % (0.0-12.0) Eosinophils (%) (Auto) 2.1 % (0.0-7.0) Basophils (%) (Auto) 0.6 % (0.0-2.0) Neutrophils # (Auto) 6.8 10 ^3/uL (1.6-8.6) Lymphocytes # (Auto) 1.6 10 ^3/uL (0.4-5.4) Monocytes # (Auto) 0.7 10 ^3/uL (0-1.3) Eosinophils # (Auto) 0.2 10 ^3/uL (0-0.8) Basophils # (Auto) 0.1 10 ^3/uL (0-0.2) Nucleated Red Blood Cells 0.0 % Sodium Level 139 mmol/L (136-145) Potassium Level 3.6 mmol/L (3.5-5.1) Chloride Level 104 mmol/L (98-107) Carbon Dioxide Level 27 mmol/L (20-31) Anion Gap 8 (5-15) Blood Urea Nitrogen 10 mg/dL (9-23) Creatinine 0.56 mg/dL (0.700-1.30) Glomerular Filtration Rate Calc 122 mL/min (>90) BUN/Creatinine Ratio 17.9 (10.0-20.0) Serum Glucose 192 mg/dL (74-106) Calcium Level 8.2 mg/dL (8.7-10.4) Vancomycin Level Trough 15.0 ug/mL (5-10) Magnesium Level 1.7 mg/dL (1.6-2.6) Test 03/11/25 11:25 03/10/25 05:55 03/09/25 05:35 03/09/25 00:03 B-Type Natriuretic Peptide 102.89 pg/mL (0-100) Total Bilirubin 0.2 mg/dL (0.2-1.0) Aspartate Amino Transferase (AST) < 8 U/L (13-40) Alanine Aminotransferase (ALT) < 9 U/L (7-40) Alkaline Phosphatase 108 U/L (46-116) Total Protein 6.5 g/dL (5.7-8.2) Albumin 3.7 g/dL (3.2-4.8) Serum Osmolality 291 mOsm/kg (278-298) Lactic Acid Level 1.2 mmol/L (0.4-2.0) Phosphorus Level 2.1 mg/dL (2.4-5.1) Vitamin B12 Level 585 pg/mL (211-911) Vitamin D 25-Hydroxy 9.3 ng/mL (30.0-100) Beta-Hydroxybutyric Acid 1.289 mmol/L (< 0.4) Influenza Type A Antigen Negative (Negative) Influenza Type B Antigen Negative (Negative) SARS-CoV-2 Antigen (Rapid) Negative (NEGATIVE) Test 03/08/25 22:49 03/08/25 22:22 03/08/25 21:27 03/08/25 21:12 Thyroid Stimulating Hormone (TSH) 1.51 uIU/mL (0.55-4.78) Urine Color Light-yellow (Yellow) Urine Clarity Clear (Clear) Urine pH 5.0 (5.0-9.0) Urine Specific [place] 1.027 (1.001-1.035) Urine Protein Negative (Negative) Urine Ketones 2+ (Negative) Urine Blood 1+ /uL (Negative) Urine Nitrite Negative (Negative) Urine Bilirubin Negative (Negative) Urine Urobilinogen Normal mg/dL (Negative) Urine Leukocyte Esterase 1+ /uL (Negative) Urine RBC 4 /hpf (0 - 3) Urine Microscopic WBC 53 /HPF (0-3) Urine Squamous Epithelial Cells Few /hpf (<5) Urine Bacteria None seen /hpf (None Seen) Urine Glucose 4+ mg/dL (Normal) Urine Opiates Screen Neg (NEGATIVE) Urine Fentanyl Screen Neg (NEGATIVE) Urine Barbiturates Screen Neg (NEGATIVE) Urine Phencyclidine Screen Neg (NEGATIVE) Urine Amphetamines Screen Neg (NEGATIVE) Urine Benzodiazepines Screen Neg (NEGATIVE) Urine Cocaine Screen Neg (NEGATIVE) Urine Cannabinoids Screen Neg (NEGATIVE) Plasma/Serum Blood Alcohol 7.5 mg/dL (<10) Blood Gas Specimen Type Arterial Blood Gas Sample Site Left radial Blood Gas Patient Temperature 37.0 Arterial Blood Date Drawn [id number] Arterial Blood pH 7.418 (7.350-7.450) Arterial Blood Partial Pressure CO2 23.4 mmHg (35.0-48.0) Arterial Blood Partial Pressure O2 84.7 mmHg (83.0-108.0) Arterial Blood HCO3 14.8 mmol/L (21.0-28.0) Arterial Blood Oxygen Saturation 96.2 % (94.0-98.0) Arterial Blood Base Excess -7.7 mmol/L (-2.0-3.0) Arterial Blood Oxyhemoglobin 95.4 % (94.0-98.0) Arterial Blood Carboxyhemoglobin 0.3 % (0.5-1.5) Arterial Blood Methemoglobin 0.5 % (0.0-1.5) Song Test Yes Blood Gas Total Hemoglobin 13.80 g/dL (13.5-17.5) Blood Gas Liter Flow 0.00 Blood Gas Modality Room air FiO2 % 21.0 Test 03/08/25 17:27 Hemoglobin A1c 12.6 % A1C (<5.7) Other Laboratory Tests 03/14/25 05:39 Brief Hx & Hospital Course: Doc Ace is a 49 years old male with a PMH of type 2 DM, uncontrolled, noncompliant with the medications presented to the ED with the chief complaints of ID, feeling tired for past 4 weeks which has been worsened for past couple of days which prompted him to visit ED . Patient reported poor appetite and increased frequency of micturition lately and dry mouth. Patient denied any fever, abdominal pain, dysuria, acute joint pain or swelling, sick contact, chest pain no shortness a breath, dysarthria or change in vision. Patient reported that he does not see any doctor and did not take any medication for diabetes for over 1 year. patient reported that he has been smoking 1 pack per day for 20 years, drinks 3-6 beers per day but denies other drug abuse. The patient was admitted with uncontrolled type 2 diabetes mellitus complicated by diabetic ketoacidosis (DKA), with a markedly elevated HbA1c of 12.6%. The DKA was likely precipitated by sepsis and medication nonadherence. Initial arterial blood gas (ABG) analysis revealed an anion gap metabolic acidosis with a component of respiratory alkalosis, which improved with treatment. The patient was managed per DKA protocol, initially receiving intravenous insulin, followed by bridging and transition to subcutaneous insulin. D5W was discontinued, and blood glucose was monitored with Accu-Cheks and insulin sliding scale (ISS), along with regular laboratory monitoring. Mild hyponatremia was noted, likely dilutional due to hyperglycemia. During hospitalization, the patient was also diagnosed with new-onset heart failure with reduced ejection fraction (HFrEF), with an initial echocardiogram showing an EF of 40% and global hypokinesis. The patient was found to have gram- positive bacteremia with Staphylococcus aureus, likely secondary to a urinary tract infection (UTI), as evidenced by urinalysis. Blood cultures confirmed the presence of Staph aureus. The patient was initially treated with Rocephin 2g daily, which was later discontinued in favor of vancomycin. 2nd set of blood cultures was obtained, showed positive. A transesophageal echocardiogram (KIMBERLEE) was performed, revealing normal left ventricular size and function with an estimated EF of 50%, moderate left ventricular hypertrophy (LVH), and grossly normal valves without vegetations. Electrocardiogram (EKG) showed normal sinus rhythm with no significant ST or T-wave changes. Troponin I and BNP were within normal limits. and other blood cultures obtained which was negative. The patient also has a history of alcohol and tobacco use disorder. Counseling was provided for more than 17 minutes regarding cessation of alcohol and tobacco use, and educational resources were given. A nicotine patch was offered if needed. Thiamine and folic acid were prescribed as part of supportive care. At the time of discharge, the patient was hemodynamically stable and showed significant clinical improvement. He was discharged home with optimal medical therapy and was counseled extensively on the importance of medication adherence and the risks associated with nonadherence. Follow-up with the primary care provider and cardiology was advised for further ischemic workup. The patient was also encouraged to adopt healthy lifestyle modifications, including a balanced diet and regular exercise. Pt is lying on bed General Appearance: Alert, Oriented X3, Cooperative, Not in acute distress HEENT: Atraumatic, Mucous membranes moist/pink Respiratory: Clear to auscultation, Normal air movement, No added sounds Cardiovascular: Regular rate, Normal S1, Normal S2, No murmurs Abdominal: Active bowel sounds, Soft, no distention, no tenderness Extremities: No edema, Normal pulses, No tenderness/swelling Skin: No Significant rash, except past surgical scars Neuro: Normal speech, sensorimotor deficits none Psych/Mental Status: Mental status NL, Mood NL Nurse was there as sharperone during examination Operations or Procedures ECHO Conclusion Technically good study. Sinus rhythm. Mild LV enlargement. Mild aortic root enlargement. EF of 40% with global hypokinesis. Mild TR. No pericardial effusion masses or vegetations. 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 The patient was brought to the cardiac laborer cutting tool in n.p.o. state. the patient was given 15 ml of oral viscous lidocaine. the patient was placed in a left lateral decubitus position with bite block in mouth. NExt conscious sedation was administered per laborer cutting tool protocol with 2__ mg of versed and _50__ mcg of fentanyl. Next a KIMBERLEE probe was advanced to the mid esophagus with ease and multiple planar images obtained. At the completion of the procedure , probe was removed and there were no immediate complications. FINDINGS: Left Ventricle: Normal LV size and function, LVEF estimated at 50 % lvef 40% on surface echo but appears low normal here. moderate LVH Right Ventricle: NOrmal RV size and function Left atrium: enlarged, Right atrium: normal Left atrial appendage: no thrombus noted, Aortic valve: trileaflet valve, no severe or AI Mitral Valve: structurally normal, trace mitral regurg, no MS Tricuspid Valve: trace tricuspid regurgitaiton, no TS Pulmonic Valve: strucutrally normal, no severe PIor PS Interatrial septum: negative color flow for R to L shunt Ascending aorta: no severe plaquing CONCLUSIONS: 1. no valvular vegetations noted MURTAZA RAMOS MD Condition at Discharge: Stable Final Diagnosis/Problems List # Uncontrolled type 2 DM complicated by DKA with a HbA1c 12.6 # DKA likely triggered by sepsis/ medication nonadherence # medication nonadherence # Mild hyponatremia likely dilutional from hyperglycemia # Anion gap metabolic acidosis with Respiratory alkalosis-improving # New onset HFrEF EF 40% # Gram-positive bacteremia with Staph aureus # Sepsis likely triggered by UTI # Acute complicated UTI/ cystitis # Gram-positive bacteremia with Staph aureus # Persistent bacteremia- resolving # alcohol abuse disorder/ dependence # tobacco abuse disorder/ dependence Discharge Disposition: Home Discharge Instruct/Medications Diet: Consistent carbohydrate, Cardiac 2g Na,low cholest Activity: No Restrictions, As Tolerated Follow Up/Referral: PCP for medication management and insulin adjustments Cardiology for ischemic workup Medications: Glucose monitoring kit along with the strips, lancets, alcohol wipes Insulin Lantus 40 units nighttime Insulin lispro as prescribed Metformin ER 500 mg daily once Jardiance 10 mg daily once Entresto 2 times daily once Metformin ER 25 mg daily once Bactrim 2 times daily for 11 days Discharge Statement: "Patient was advised to return to the ER or call 911 if any headaches, dizziness, shortness of breath, chest pain, abdominal pain, bleeding, fevers, or worsening of medical condition. Patient was counseled about treatment plan, medications, possible side effects, patientverbalized understanding. All questions were answered to the best of my ability. This discharge took greater then 30 minutes in planning, reviewing documentation, counseling the patient, and discussing with other team members." ASSESSMENT ASSESSMENT Assessment # Uncontrolled type 2 DM complicated by DKA with a HbA1c 12.6 # DKA likely triggered by sepsis/ medication nonadherence # medication nonadherence # Mild hyponatremia likely dilutional from hyperglycemia # Anion gap metabolic acidosis with Respiratory alkalosis-improving # New onset HFrEF EF 40% # Gram-positive bacteremia with Staph aureus # Sepsis likely triggered by UTI # Acute complicated UTI/ cystitis # Gram-positive bacteremia with Staph aureus # Persistent bacteremia- resolving # alcohol abuse disorder/ dependence # tobacco abuse disorder/ dependence CORA CHAVEZ RESIDENT March 14, 2025 13:58
[2025-03-14 14:42] VITALS: BP 122/73; PULSE 73; RESP 15; TEMP 98.4; O2SAT 98
== END 2025-03-14 15:40 | disposition home or self-care (01) | DRG 871 ==
LOC: ER 16:34 → OVERFLOW 20:42 → TELE-EAST 03-09 14:25 → EAST 03-14 10:35
PROVIDERS: ADMIT Student in an Organized Health Care Education/Training Program; ATTEND Emergency Medicine
PROC: B24BZZ4 Ultrasonography of Heart with Aorta, Transesophageal (ICD-10-PCS; principal; 2025-03-13)
DX: A41.01 Sepsis due to Methicillin susceptible Staphylococcus aureus (principal); E11.10 Type 2 diabetes mellitus with ketoacidosis without coma; E87.1 Hypo-osmolality and hyponatremia; I38 Endocarditis, valve unspecified; E87.4 Mixed disorder of acid-base balance; N30.90 Cystitis, unspecified without hematuria; Y90.9 Presence of alcohol in blood, level not specified; Z20.822 Contact with and (suspected) exposure to COVID-19; F17.210 Nicotine dependence, cigarettes, uncomplicated; F10.20 Alcohol dependence, uncomplicated; Z79.1 Long term (current) use of non-steroidal anti-inflammatories (NSAID); Z79.899 Other long term (current) drug therapy; Z83.3 Family history of diabetes mellitus; Z88.5 Allergy status to narcotic agent; Z88.6 Allergy status to analgesic agent; Z91.148 Patient's other noncompliance with medication regimen for other reason
CPT/HCPCS: 36415; 36600; 71045; 80048; 80053; 80202; 80307; 80320; 81001; 82010; 82306; 82565; 82607; 82805; 82962; 83036; 83605; 83735; 83880; 83930; 84100; 84443; 85025; 87040; 87077; 87086; 87088; 87186; 87426; 87804; 93005; 93306; 93312; 99152; G0378; J1815; J2250; J2470; J3480; J7060